=== PATIENT | female | born 1995 | race African-American/Black ===

== ENCOUNTER 2016-07-15 16:56 | Emergency (ER) | payer OTHER ==
[2016-07-15 19:39] VITALS: RESP 16
[2016-07-15 20:32] LABS: Basophils # (A) 0.1 k/uL (0-0.2); Basophils % (A) 1 %; CH 28.4; CHCM 32.8; Eosinophils # (A) 0.2 k/uL (0-0.7); Eosinophils % (A) 1 %; HCT 38.3 % (34.0-46.0); HDW 2.14; HGB 12.7 gm/dL (11.4-16.0); Luc # (Auto) 0.21; Luc % (Auto) 2; Lymphocytes # (A) 3.1 k/uL (1.0-4.8); Lymphocytes % (A) 23 %; MCH 28.9 pg (25.0-35.0); MCHC 33.3 g/dL (31.0-37.0); MCV 86.7 fL (80.0-100.0); Mean Platelet Volume 7.2; Monocytes # (A) 0.6 k/uL (0-1.0); Monocytes % (A) 5 %; Neutrophils # (A) 9.1 k/uL (1.3-7.7); Neutrophils % (A) 69 %; RBC 4.41 m/uL (3.80-5.40); RDW 13.4 % (11.5-15.5); WBC 13.2 k/uL (3.8-10.6); WBC (Perox) 13.11
[2016-07-15 20:37] LABS: Appearance,Urine Clear (Clear); Bilirubin,Urine Negative (Negative); Glucose,Urine (UA) Negative (Negative); Ketones,Urine Negative (Negative); Leukocyte Esterase,Urine Negative (Negative); Mucus,Urine Occasional /hpf; Nitrite,Urine Negative (Negative); Particle Count 7701; Protein,Urine Negative (Negative); RBC,Urine <1 /hpf (0-5); Specific Gravity,Urine 1.023 (1.001-1.035); Squamous Epithelial Cell,Urine 1 /hpf (0-4); UA Billing (MACRO vs. MICRO) MICRO; Urobilinogen,Urine <2.0 mg/dL (<2.0); WBC,Urine 1 /hpf (0-5)
[2016-07-15 20:41] LABS: ALT 36 U/L (9-52); AST 30 U/L (14-36); Alkaline Phosphatase 103 U/L (38-126); Anion Gap 11 mmol/L; Blood Urea Nitrogen 12 mg/dL (7-17); Carbon Dioxide 22 mmol/L (22-30); Chloride 108 mmol/L (98-107); Glucose 89 mg/dL (74-99); Non-African American GFR(MDRD) >60 (>60 ml/min/1.73 sqM); Potassium 4.1 mmol/L (3.5-5.1); Sodium 141 mmol/L (137-145); Total Bilirubin 0.7 mg/dL (0.2-1.3); Total Protein 8.4 g/dL (6.3-8.2)
[2016-07-15 20:58] LABS: HCG,Quantitative Serum <2.4 mIU/mL
[2016-07-15] MEDS ORDERED: ACETAMINOPHEN TAB 500 MG TAB PO STA (21:16)
--- NOTE | 2016-07-15 21:17 | ED ---
Abdominal Pain HPI - General Chief Complaint: Abdominal Pain Stated Complaint: Abd Pain/Vaginal Bleeding Preg Length Unknown Time Seen by Provider: 07/15/16 19:26 Source: patient, RN notes reviewed, old records reviewed Mode of arrival: wheelchair Limitations: no limitations - History of Present Illness Initial Comments: This is a 20 year old female with lower pelvic cramping, vaginal bleeding for one week, and postive test 3 weeks ago. She denies any nausea, vomiting, dysuria. She reports that she has had a very small amount of vaginal bleeding, no clots. She denies any fever, chills, chest pain, shortness o breath. - Related Data Home Medications Medication Instructions Recorded Confirmed Albuterol Inhaler [Ventolin Hfa 1 - 2 puff INHALATION RT-Q6H PRN 07/15/16 Inhaler] Budesonide/Formoterol Fumarate 2 puff INHALATION RT-BID 07/15/16 07/15/16 [Symbicort 160-4.5 Mcg Inhaler] Montelukast [Singulair] 10 mg PO DAILY 07/15/16 07/15/16 Previous Rx's Medication Instructions Recorded Cetirizine HCl [Zyrtec] 10 mg PO DAILY #30 tab 10/20/15 Allergies Allergy/AdvReac Type Severity Reaction Status Date / Time ibuprofen [From Motrin] Allergy Rash/Hives Verified 07/15/16 19:53 Penicillins Allergy Rash/Hives Verified 07/15/16 19:53 Review of Systems ROS Statement: Those systems with pertinent positive or pertinent negative responses have been documented in the HPI. ROS Other: All systems not noted in ROS Statement are negative. Past Medical History Past Medical History: Asthma Additional Past Medical History / Comment(s): scoliosis, hereditary angiodema History of Any Multi-Drug Resistant Organisms: None Reported Past Surgical History: No Surgical Hx Reported Additional Past Surgical History / Comment(s): D & C Past Psychological History: Anxiety, Bipolar, Depression, Schizophrenia Smoking Status: Current every day smoker Past Alcohol Use History: Rare Past Drug Use History: None Reported General Exam - General Exam Comments Initial Comments: Well appearing 20 year old female. Limitations: no limitations General appearance: alert, in no apparent distress Head exam: Present: atraumatic, normocephalic, normal inspection Eye exam: Present: normal appearance, PERRL, EOMI. Absent: scleral icterus, conjunctival injection, periorbital swelling ENT exam: Present: normal exam, mucous membranes moist Neck exam: Present: normal inspection. Absent: tenderness, meningismus, lymphadenopathy Respiratory exam: Present: normal lung sounds bilaterally. Absent: respiratory distress, wheezes, rales, rhonchi, stridor Cardiovascular Exam: Present: regular rate, normal rhythm, normal heart sounds. Absent: systolic murmur, diastolic murmur, rubs, gallop, clicks GI/Abdominal exam: Present: soft, normal bowel sounds. Absent: distended, tenderness, guarding, rebound, rigid Speculum exam: Present: normal speculum exam, vaginal bleeding (scant vaginal bleeding. ). Absent: erythema, vaginal discharge Extremities exam: Present: normal inspection, full ROM, normal capillary refill. Absent: tenderness, pedal edema, joint swelling, calf tenderness Back exam: Present: normal inspection Neurological exam: Present: alert, oriented X3, CN II-XII intact Psychiatric exam: Present: normal affect, normal mood Skin exam: Present: warm, dry, intact, normal color. Absent: rash Course Vital Signs 07/15/16 07/15/16 07/15/16 17:09 19:38 21:28 Temperature 99.0 F 98.6 F 97.7 F Pulse Rate 100 74 63 Respiratory 20 16 16 Rate Blood Pressure 113/56 135/66 138/75 O2 Sat by Pulse 96 98 98 Oximetry Medical Decision Making - Medical Decision Making This is a 20 year old female with pelvic cramping, vaginal bleeding and positive test 3 weeks ago. Patient has negative urine , no abodminal tenderness. Lab work is negative. Patient informed of negative test result. Patient has scant vaginal bleeding, no clots. Cervix is not dialated. Discussed that patient could likely be having miscarriage with this bleeding. Offered patient out patient transvaginal US. Patient agrees to folloow up with OBGYN. Patient agrees to treatment plan and will comply. - Lab Data Result diagrams: 07/15/16 20:15 07/15/16 20:15 Lab Results 07/15/16 07/15/16 07/15/16 Range/Units 20:06 20:06 20:15 WBC 13.2 H (3.8-10.6) k/uL RBC 4.41 (3.80-5.40) m/uL Hgb 12.7 (11.4-16.0) gm/dL Hct 38.3 (34.0-46.0) % MCV 86.7 (80.0-100.0) fL MCH 28.9 (25.0-35.0) pg MCHC 33.3 (31.0-37.0) g/dL RDW 13.4 (11.5-15.5) % Plt Count 268 (150-450) k/uL Neutrophils % 69 % Lymphocytes % 23 % Monocytes % 5 % Eosinophils % 1 % Basophils % 1 % Neutrophils # 9.1 H (1.3-7.7) k/uL Lymphocytes # 3.1 (1.0-4.8) k/uL Monocytes # 0.6 (0-1.0) k/uL Eosinophils # 0.2 (0-0.7) k/uL Basophils # 0.1 (0-0.2) k/uL Sodium (137-145) mmol/L Potassium (3.5-5.1) mmol/L Chloride (98-107) mmol/L Carbon Dioxide (22-30) mmol/L Anion Gap mmol/L BUN (7-17) mg/dL Creatinine (0.52-1.04) mg/dL Est GFR (MDRD) Af Amer (>60 ml/min/1.73 sqM) Est GFR (MDRD) Non-Af (>60 ml/min/1.73 sqM) Glucose (74-99) mg/dL Calcium (8.4-10.2) mg/dL Total Bilirubin (0.2-1.3) mg/dL AST (14-36) U/L ALT (9-52) U/L Alkaline Phosphatase (38-126) U/L Total Protein (6.3-8.2) g/dL Albumin (3.5-5.0) g/dL HCG, Quant mIU/mL Urine Color Yellow Urine Appearance Clear (Clear) Urine pH 6.0 (5.0-8.0) Ur Specific [place] 1.023 (1.001-1.035) Urine Protein Negative (Negative) Urine Glucose (UA) Negative (Negative) Urine Ketones Negative (Negative) Urine Blood Small H (Negative) Urine Nitrite Negative (Negative) Urine Bilirubin Negative (Negative) Urine Urobilinogen <2.0 (<2.0) mg/dL Ur Leukocyte Esterase Negative (Negative) Urine RBC <1 (0-5) /hpf Urine WBC 1 (0-5) /hpf Ur Squamous Epith Cells 1 (0-4) /hpf Urine Mucus Occasional H (None) /hpf Urine HCG, Qual Not Detected (Not Detectd) C.trachomatis RNA (Not detected) Chlamydia/GC DNA Source N.gonorrhoeae RNA (Not detected) Trichomonas Ag (Rapid) (Negative) 07/15/16 07/15/16 07/15/16 Range/Units 20:15 21:00 21:00 WBC (3.8-10.6) k/uL RBC (3.80-5.40) m/uL Hgb (11.4-16.0) gm/dL Hct (34.0-46.0) % MCV (80.0-100.0) fL MCH (25.0-35.0) pg MCHC (31.0-37.0) g/dL RDW (11.5-15.5) % Plt Count (150-450) k/uL Neutrophils % % Lymphocytes % % Monocytes % % Eosinophils % % Basophils % % Neutrophils # (1.3-7.7) k/uL Lymphocytes # (1.0-4.8) k/uL Monocytes # (0-1.0) k/uL Eosinophils # (0-0.7) k/uL Basophils # (0-0.2) k/uL Sodium 141 (137-145) mmol/L Potassium 4.1 (3.5-5.1) mmol/L Chloride 108 H (98-107) mmol/L Carbon Dioxide 22 (22-30) mmol/L Anion Gap 11 mmol/L BUN 12 (7-17) mg/dL Creatinine 1.03 (0.52-1.04) mg/dL Est GFR (MDRD) Af Amer >60 (>60 ml/min/1.73 sqM) Est GFR (MDRD) Non-Af >60 (>60 ml/min/1.73 sqM) Glucose 89 (74-99) mg/dL Calcium 10.0 (8.4-10.2) mg/dL Total Bilirubin 0.7 (0.2-1.3) mg/dL AST 30 (14-36) U/L ALT 36 (9-52) U/L Alkaline Phosphatase 103 (38-126) U/L Total Protein 8.4 H (6.3-8.2) g/dL Albumin 4.7 (3.5-5.0) g/dL HCG, Quant <2.4 mIU/mL Urine Color Urine Appearance (Clear) Urine pH (5.0-8.0) Ur Specific [place] (1.001-1.035) Urine Protein (Negative) Urine Glucose (UA) (Negative) Urine Ketones (Negative) Urine Blood (Negative) Urine Nitrite (Negative) Urine Bilirubin (Negative) Urine Urobilinogen (<2.0) mg/dL Ur Leukocyte Esterase (Negative) Urine RBC (0-5) /hpf Urine WBC (0-5) /hpf Ur Squamous Epith Cells (0-4) /hpf Urine Mucus (None) /hpf Urine HCG, Qual (Not Detectd) C.trachomatis RNA DETECTED H (Not detected) Chlamydia/GC DNA Source Endocervix N.gonorrhoeae RNA Not detected (Not detected) Trichomonas Ag (Rapid) Positive H (Negative) Disposition Clinical Impression: Abdominal cramping, Abnormal uterine bleeding Disposition: HOME SELF-CARE Condition: Good Instructions: Dysfunctional Uterine Bleeding (ED) Additional Instructions: Patient advised to follow up with outpatient ultrasound tomorrow. Return to the emergency department if any alarming signs or symptoms occur. Follow-up with primary care provider on Monday. Referrals: Matt Carson DO [Primary Care Provider] - 1-2 days Time of Disposition: 21:12
[2016-07-15 21:33] VITALS: BP 138/75; PULSE 63; TEMP 97.7
== END 2016-07-15 21:33 | disposition home or self-care (01) ==
LOC: EC 16:56
DX: N93.9 Abnormal uterine and vaginal bleeding, unspecified (principal); R10.9 Unspecified abdominal pain; J45.909 Unspecified asthma, uncomplicated; F17.200 Nicotine dependence, unspecified, uncomplicated; Z79.899 Other long term (current) drug therapy; Z88.0 Allergy status to penicillin; Z88.6 Allergy status to analgesic agent
CPT/HCPCS: 36415; 80053; 81001; 81025; 84702; 85025; 87070; 87205; 87491; 87591; 87808; 99284

== ENCOUNTER → 2016-07-18 | Outpatient (CLI) | payer OTHER ==
--- NOTE | 2016-07-18 13:26 | US ---
EXAMINATION TYPE: US transvaginal DATE OF EXAM: 07/18/2016 12:05 PM COMPARISON: 11/01/2014 CLINICAL HISTORY: Prolonged vaginal bleeding. Patient states having a positive test at home . Was at ER few days ago and came back negative. TECHNIQUE: Transvaginal (TV) Date of LMP: 05/23/2016, EXAM MEASUREMENTS: Uterus: 7.0 x 4.5 x 3.1 cm Endometrial Stripe: 0.8 cm Right Ovary: 3.5 x 2.2 x 1.6 cm Left Ovary: 3.8 x 2.2 x 1.6 cm 1. Uterus: Anteverted wnl 2. Endometrium: wnl 3. Right Ovary: Follicles 4. Left Ovary: Follicles Spectral, color and waveform doppler imaging shows good arterial and venous flow within the ovaries ; there is no evidence for ovarian torsion. 5. Bilateral Adnexa: wnl 6. Posterior cul-de-sac: no free fluid IMPRESSION: 1. No acute process. If there is concern for ectopic correlate with serial beta hCG and pel brianna ultrasound.
== END | disposition home or self-care (01) ==
LOC: RADXRMAIN 11:42
PROVIDERS: ATTEND Physician Assistant Medical
DX: N93.9 Abnormal uterine and vaginal bleeding, unspecified (principal)
CPT/HCPCS: 76830

== ENCOUNTER 2017-01-14 03:52 | Emergency (ER) | payer OTHER ==
[2017-01-14] MEDS ORDERED: HYDROcodone/APAP 5-325MG 1 EACH TAB PO STA (04:34)
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
[2017-01-14 05:11] VITALS: BP 151/90; PULSE 104; RESP 18; TEMP 98
== END 2017-01-14 05:09 | disposition home or self-care (01) ==
LOC: EC 03:52
DX: S01.81XA Laceration without foreign body of other part of head, initial encounter (principal); J45.909 Unspecified asthma, uncomplicated; F17.200 Nicotine dependence, unspecified, uncomplicated; Z88.0 Allergy status to penicillin; Z88.6 Allergy status to analgesic agent; Z79.51 Long term (current) use of inhaled steroids; Z79.899 Other long term (current) drug therapy; Y04.0XXA Assault by unarmed brawl or fight, initial encounter
CPT/HCPCS: 12011; 99283

== ENCOUNTER 2017-01-14 20:31 | Emergency (ER) | payer OTHER ==
[2017-01-14 20:51] VITALS: BP 125/69; PULSE 89; RESP 18; TEMP 98.5
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
[2017-01-14] MEDS ORDERED: traMADol 50 MG STARTER PACK 3 TAB BTL PO STA (22:34)
== END 2017-01-14 22:20 | disposition home or self-care (01) ==
LOC: EC 20:31
DX: S06.0X0A Concussion without loss of consciousness, initial encounter (principal); S00.93XA Contusion of unspecified part of head, initial encounter; J45.909 Unspecified asthma, uncomplicated; F31.9 Bipolar disorder, unspecified; F20.9 Schizophrenia, unspecified; F41.9 Anxiety disorder, unspecified; F17.200 Nicotine dependence, unspecified, uncomplicated; Z79.51 Long term (current) use of inhaled steroids; Z79.899 Other long term (current) drug therapy; Z88.0 Allergy status to penicillin; Z88.6 Allergy status to analgesic agent; W22.8XXA Striking against or struck by other objects, initial encounter
CPT/HCPCS: 70450; 99283

== ENCOUNTER → 2017-02-24 | Outpatient (CLI) | payer OTHER ==
--- NOTE | 2017-02-24 09:26 | US ---
EXAMINATION TYPE: US thyroid st tissue head/neck DATE OF EXAM: 02/24/2017 COMPARISON: NONE CLINICAL HISTORY: E07.9 Disorder of thyroid. Neck swelling GLAND SIZE: Right Lobe: 4.8 x 1.2 x 1.4 cm Overall Parenchyma: homogenous Left Lobe: 4.7 x 1.2 x 1.7 cm Overall Parenchyma: homogeneous Isthmus Thickness: 0.2 cm NODULES RIGHT: # of nodules measured on right: 0 LEFT: # of nodules measured on left: 0 ISTHMUS: # of nodules measured in the isthmus: 0 Bilateral neck scanned, no evidence of lymphadenopathy. IMPRESSION: No distinct abnormality appreciated.
== END | disposition home or self-care (01) ==
LOC: RADUSWWP 08:22
PROVIDERS: ATTEND Family Medicine
DX: E07.9 Disorder of thyroid, unspecified (principal)
CPT/HCPCS: 76536

== ENCOUNTER 2017-04-13 11:04 | Emergency (ER) | payer OTHER ==
[2017-04-13 11:28] VITALS: BP 103/70; PULSE 100; RESP 18; TEMP 98.6
--- NOTE | 2017-04-13 13:16 | ED ---
General Adult HPI - General Chief complaint: Abdominal Pain Stated complaint: Abdominal pain Time Seen by Provider: 04/13/17 12:51 Source: patient, RN notes reviewed Mode of arrival: ambulatory Limitations: no limitations - History of Present Illness Initial comments: Patient 41-year-old female who presents emergency room today with chief complaint of lower abdominal pain over the last 2 days. Patient does admit that she is to follow-up with the [employer]. She states that she took Prevacid test at home was negative. She states started the OB who ordered an outpatient lab. Performed. She states that she couldn't regular. Last night. She states she came this morning had it drawn. States that because she was having increased pain she came here to the emergency room. Patient omits to some vaginal discharge denies any bleeding. Patient does note that she's had new sexual partners. She states it's always possibility of a STD. Patient denies any other complaints or symptoms at this time. Patient denies any recent fever, chills, shortness of breath, chest pain, back pain, numbness or tingling, dysuria or hematuria, constipation or diarrhea, headaches or visual changes, or any other complaints. - Related Data Home Medications Medication Instructions Recorded Confirmed Albuterol Inhaler [Ventolin Hfa 1 - 2 puff INHALATION RT-Q6H PRN 07/15/16 Inhaler] Budesonide/Formoterol Fumarate 2 puff INHALATION RT-BID 07/15/16 01/14/17 [Symbicort 160-4.5 Mcg Inhaler] Montelukast [Singulair] 10 mg PO DAILY 07/15/16 01/14/17 Aviane 1 tab PO DAILY 04/13/17 04/13/17 Naproxen 500 mg PO DAILY PRN 04/13/17 04/13/17 Previous Rx's Medication Instructions Recorded Cetirizine HCl [Zyrtec] 10 mg PO DAILY #30 tab 10/20/15 Allergies Allergy/AdvReac Type Severity Reaction Status Date / Time ibuprofen [From Motrin] Allergy Rash/Hives Verified 04/13/17 13:08 Penicillins Allergy Rash/Hives Verified 04/13/17 13:08 Review of Systems ROS Statement: Those systems with pertinent positive or pertinent negative responses have been documented in the HPI. ROS Other: All systems not noted in ROS Statement are negative. Past Medical History Past Medical History: Asthma Additional Past Medical History / Comment(s): scoliosis, hereditary angiodema History of Any Multi-Drug Resistant Organisms: None Reported Past Surgical History: No Surgical Hx Reported Additional Past Surgical History / Comment(s): D & C Past Psychological History: Anxiety, Bipolar, Depression, Schizophrenia Smoking Status: Current every day smoker Past Alcohol Use History: Rare Past Drug Use History: Marijuana General Exam - General Exam Comments Initial Comments: General: The patient is awake and alert, in no distress, and does not appear acutely ill. Eye: Pupils are equal, round and reactive to light, extra-ocular movements are intact. No nystagmus. There is normal conjunctiva bilaterally. No signs of icterus. Ears, nose, mouth and throat: There are moist mucous membranes and no oral lesions. Neck: The neck is supple, there is no tenderness or JVD. Cardiovascular: There is a regular rate and rhythm. No murmur, rub or gallop is appreciated. Respiratory: Lungs are clear to auscultation, respirations are non-labored, breath sounds are equal. No wheezes, stridor, rales, or rhonchi. Gastrointestinal: Soft, non-distended, non-tender abdomen without masses or organomegaly noted. There is no rebound or guarding present. No CVA tenderness. Bowel sounds are unremarkable. Musculoskeletal: Normal ROM, no tenderness. Strength 5/5. Sensation intact. Pulses equal bilaterally 2+. Neurological: A&O x 3. CN II-XII intact, There are no obvious motor or sensory deficits. Coordination appears grossly intact. Speech is normal. Skin: Skin is warm and dry and no rashes or lesions are noted. Psychiatric: Cooperative, appropriate mood & affect, normal judgment. : CRYSTAL GAZERLINDA Valles present for exam. Patient does have some white discharge in the vaginal canal. This has tenderness with speculum exam. Limitations: no limitations Course Vital Signs 04/13/17 11:24 Temperature 98.6 F Pulse Rate 100 Respiratory 18 Rate Blood Pressure 103/70 O2 Sat by Pulse 98 Oximetry Medical Decision Making - Medical Decision Making 21-year-old female presented for lower abdominal pain. Denies any bleeding. She does not that show some discharge. There is white discharge on exam. She does have tenderness with speculum exam. She states she does have some concern for possible STDs. Patient will be treated with Diflucan along with Rocephin and azithromycin here in emergency room. Patient's urinalysis reviewed. Patient's test blood test done outpatient was reviewed and was negative. Patient is advised no sexual contact for symptoms have resolved following up with her [employer] over the next 5 days. Advised return to emergency room symptoms increase or worsen or for any concerns. Disposition Clinical Impression: Yeast infection, Concern about STD in female without diagnosis Disposition: HOME SELF-CARE Condition: Stable Instructions: Sexually Transmitted Diseases (ED) Additional Instructions: Please follow-up with your [employer] over the next 5 days. Please no sexual contact until symptoms have resolved. Please return to emergency room symptoms increase or worsen or for concerns . Referrals: Yahaira Rivera MD [Primary Care Provider] - 1-2 days Chelsi Parry DO [Doctor of Osteopathic Medicine] - 1-2 days Time of Disposition: 13:59
[2017-04-13 13:27] LABS: Amorphous Sediment,Urine Few /hpf; Appearance,Urine Turbid (Clear); Bacteria,Urine Rare /hpf; Bilirubin,Urine Negative (Negative); Blood,Urine Negative (Negative); Color,Urine Yellow; Glucose,Urine (UA) Negative (Negative); Ketones,Urine Negative (Negative); Leukocyte Esterase,Urine Small (Negative); Mucus,Urine Occasional /hpf; Nitrite,Urine Negative (Negative); PH, Urine 7.5 (5.0-8.0); Protein,Urine Negative (Negative); Specific Gravity,Urine 1.016 (1.001-1.035); Squamous Epithelial Cell,Urine 24 /hpf (0-4); Urobilinogen,Urine <2.0 mg/dL (<2.0); WBC,Urine 8 /hpf (0-5)
[2017-04-13] MEDS ORDERED: cefTRIAXone 250 MG VIAL IM STA (13:56)
[2017-04-13] MEDS ORDERED: FLUCONAZOLE 150 MG TAB PO STA (13:57)
[2017-04-13] MEDS ORDERED: AZITHROMYCIN 500 MG TAB PO STA (13:57)
[2017-04-14 15:47] LABS: Chlamydia trachomatis rRNA Not detected (Not detected); Neisseria gonorrhoeae rRNA Not detected (Not detected)
== END 2017-04-13 15:11 | disposition home or self-care (01) ==
LOC: EC 11:04
DX: B37.9 Candidiasis, unspecified (principal); J45.909 Unspecified asthma, uncomplicated; F17.200 Nicotine dependence, unspecified, uncomplicated; Z88.6 Allergy status to analgesic agent; Z88.0 Allergy status to penicillin; Z32.02 Encounter for pregnancy test, result negative; Z79.51 Long term (current) use of inhaled steroids; Z79.3 Long term (current) use of hormonal contraceptives; Z79.899 Other long term (current) drug therapy
CPT/HCPCS: 87591; 87491; 81001; 87808; 87070; 87086; 87205; 99284; 96372; J0696; 36415; 84702

== ENCOUNTER → 2017-04-13 | Outpatient (CLI) | payer OTHER | END | disposition home or self-care (01) | LOC: LABWHC1 10:38 | PROVIDERS: ATTEND Obstetrics & Gynecology | DX: N92.6 Irregular menstruation, unspecified (principal) | CPT/HCPCS: 36415; 84702 ==

== ENCOUNTER 2017-11-16 21:36 | Emergency (ER) | payer OTHER ==
[2017-11-16] MEDS ORDERED: AZITHROMYCIN 500 MG TAB PO STA (23:29)
--- NOTE | 2017-11-16 23:30 | ED ---
General Adult HPI - General Source: patient, RN notes reviewed Mode of arrival: ambulatory Limitations: no limitations <Edgardo Shields - Last Filed: 11/16/17 23:27> <Candy Bosch - Last Filed: 11/17/17 08:50> - General Chief complaint: ENT Stated complaint: poss bug in ear Time Seen by Provider: 11/16/17 23:17 - History of Present Illness Initial comments: Patient is a 22-year-old female presented to the emergency room today with a chief complaint of feeling fullness in the right ear. She is worried that there could be a bug in it. She does admit that she says some sinus congestion and rhinorrhea. Patient denies any other complaints or symptoms. She states the symptoms started 2 days ago. Patient denies any recent fever, chills, shortness of breath, chest pain, back pain, abdominal pain, nausea or vomiting, numbness or tingling, dysuria or hematuria, constipation or diarrhea, headaches or visual changes, or any other complaints. (Edgardo Shields) - Related Data Home Medications Medication Instructions Recorded Confirmed Albuterol Inhaler [Ventolin Hfa 1 - 2 puff INHALATION RT-Q6H PRN 07/15/16 Inhaler] Budesonide/Formoterol Fumarate 2 puff INHALATION RT-BID 07/15/16 11/16/17 [Symbicort 160-4.5 Mcg Inhaler] Montelukast [Singulair] 10 mg PO DAILY 07/15/16 11/16/17 Aviane 1 tab PO DAILY 04/13/17 11/16/17 Naproxen 500 mg PO DAILY PRN 04/13/17 11/16/17 Previous Rx's Medication Instructions Recorded Cetirizine HCl [Zyrtec] 10 mg PO DAILY #30 tab 10/20/15 Azithromycin [Zithromax Z-pack] 0 mg PO DIRECTED #6 tab 11/16/17 Allergies Allergy/AdvReac Type Severity Reaction Status Date / Time ibuprofen [From Motrin] Allergy Rash/Hives Verified 11/16/17 23:22 Penicillins Allergy Rash/Hives Verified 11/16/17 23:22 Review of Systems ROS Other: All systems not noted in ROS Statement are negative. <Edgardo Shields - Last Filed: 11/16/17 23:27> ROS Other: All systems not noted in ROS Statement are negative. <Candy Bosch - Last Filed: 11/17/17 08:50> ROS Statement: Those systems with pertinent positive or pertinent negative responses have been documented in the HPI. Past Medical History Past Medical History: Asthma Additional Past Medical History / Comment(s): scoliosis, hereditary angiodema History of Any Multi-Drug Resistant Organisms: None Reported Past Surgical History: No Surgical Hx Reported Additional Past Surgical History / Comment(s): D & C Past Psychological History: Anxiety, Bipolar, Depression, Schizophrenia Smoking Status: Current every day smoker Past Alcohol Use History: Rare Past Drug Use History: Marijuana <Edgardo Shields - Last Filed: 11/16/17 23:27> General Exam Limitations: no limitations <Edgardo Shields - Last Filed: 11/16/17 23:27> <Candy Bosch - Last Filed: 11/17/17 08:50> - General Exam Comments Initial Comments: General: The patient is awake and alert, in no distress, and does not appear acutely ill. Eye: Pupils are equal, round and reactive to light, extra-ocular movements are intact. No nystagmus. There is normal conjunctiva bilaterally. No signs of icterus. Ears, nose, mouth and throat: There are moist mucous membranes and no oral lesions. No tenderness over the frontal or maxillary sinuses. Decreased landmarks to the right TM. No foreign body. Left TM is clear. Neck: The neck is supple, there is no tenderness or JVD. Musculoskeletal: Normal ROM, no tenderness. Strength 5/5. Sensation intact. Pulses equal bilaterally 2+. Neurological: A&O x 3. CN II-XII intact, There are no obvious motor or sensory deficits. Coordination appears grossly intact. Speech is normal. Skin: Skin is warm and dry and no rashes or lesions are noted. Psychiatric: Cooperative, appropriate mood & affect, normal judgment. (Edgardo Shields) Vital Signs 11/16/17 11/17/17 22:24 00:04 Temperature 98.3 F 97.9 F Pulse Rate 80 73 Respiratory 18 16 Rate Blood Pressure 111/74 123/70 O2 Sat by Pulse 98 98 Oximetry Medical Decision Making <Edgardo Shields - Last Filed: 11/16/17 23:27> <Candy Bosch - Last Filed: 11/17/17 08:50> - Medical Decision Making Patient will be treated for otitis media on the right. There is no evidence for any foreign body. There is decreased bony landmarks was some increased erythema. She has had increased sinus pressure and rhinorrhea. (Edgardo Shields) The patient was seen and evaluated by the mid-level provider. The patient was concerned she had a foreign body in her ear and requesting that a camera be placed to scope her ear. No foreign body was visualized by the mid-level provider and he referred her to ENT for follow-up. Patient expressed upset that she was seen by a mid-level provider not a physician, patient also expresses concern that she was being racially profile did not is why she is being seen by mid-level's and not real doctors. I personally saw and evaluated the patient, patient reports feeling a buzzing sensation in her right ear after being treated for otitis media. Patient reports that she believes that the bug is deeper in her urine can be seen on exam. I advised her that I also did not see anything in her ear canal. Patient was otherwise well-appearing. I will refer the patient to ENT for follow-up. (Candy Bosch) Disposition Is patient prescribed a controlled substance at d/c from ED?: No Time of Disposition: 23:29 <Edgardo Shields - Last Filed: 11/16/17 23:27> <Candy Bosch - Last Filed: 11/17/17 08:50> Clinical Impression: Acute otitis media Disposition: HOME SELF-CARE Condition: Good Instructions: Earache (ED) Additional Instructions: Please use medication as discussed. Please follow-up with family doctor in the next 2 days of symptoms have not improved. Please return to emergency room if the symptoms increase or worsen or for any other concerns. Prescriptions: Azithromycin [Zithromax Z-pack] 0 mg PO DIRECTED #6 tab Referrals: Yahaira Rivera MD [Primary Care Provider] - 1-2 days Uriel Chavez MD [STAFF PHYSICIAN] - 1-2 days
[2017-11-17 00:05] VITALS: BP 123/70; PULSE 73; RESP 16; TEMP 97.9
== END 2017-11-17 00:05 | disposition home or self-care (01) ==
LOC: EC 21:36
DX: H66.91 Otitis media, unspecified, right ear (principal); J45.909 Unspecified asthma, uncomplicated; F17.200 Nicotine dependence, unspecified, uncomplicated; Z79.51 Long term (current) use of inhaled steroids; Z79.3 Long term (current) use of hormonal contraceptives; Z79.899 Other long term (current) drug therapy; Z88.0 Allergy status to penicillin; Z88.6 Allergy status to analgesic agent
CPT/HCPCS: 99282

== ENCOUNTER 2017-12-16 17:43 | Emergency (ER) | payer OTHER ==
[2017-12-16 17:47] VITALS: BP 120/65; PULSE 92; RESP 18; TEMP 98.4
--- NOTE | 2017-12-16 18:01 | ED ---
General Adult HPI - General Chief complaint: Dental/Oral Stated complaint: Dental Pain Time Seen by Provider: 12/16/17 17:48 Source: patient, RN notes reviewed Mode of arrival: ambulatory Limitations: no limitations - History of Present Illness Initial comments: patient 22-year-old female presented to the emergency room today with a chief complaint of increased dental pain. She does admit to tenderness over tooth # 2. She states that she's had a taste in her mouth to over the last day. She has mid to a sore throat that started earlier as well. Patient states that she' s had a cavity in this tooth for some time but pain is just recently got worse over the last 2 days. Patient denies any other complaints or symptoms. Patient denies any recent fever, chills, shortness of breath, chest pain, back pain, abdominal pain, nausea or vomiting, numbness or tingling, headaches or visual changes, or any other complaints. - Related Data Home Medications Medication Instructions Recorded Confirmed Albuterol Inhaler [Ventolin Hfa 1 - 2 puff INHALATION RT-Q6H PRN 07/15/16 Inhaler] Budesonide/Formoterol Fumarate 2 puff INHALATION RT-BID 07/15/16 11/16/17 [Symbicort 160-4.5 Mcg Inhaler] Montelukast [Singulair] 10 mg PO DAILY 07/15/16 11/16/17 Aviane 1 tab PO DAILY 04/13/17 11/16/17 Naproxen 500 mg PO DAILY PRN 04/13/17 11/16/17 Previous Rx's Medication Instructions Recorded Cetirizine HCl [Zyrtec] 10 mg PO DAILY #30 tab 10/20/15 Azithromycin [Zithromax Z-pack] 0 mg PO DIRECTED #6 tab 11/16/17 Amoxicillin 500 mg PO Q8H 10 Days day 12/16/17 Allergies Allergy/AdvReac Type Severity Reaction Status Date / Time ibuprofen [From Motrin] Allergy Rash/Hives Verified 12/16/17 17:47 Penicillins Allergy Rash/Hives Verified 12/16/17 17:47 Review of Systems ROS Statement: Those systems with pertinent positive or pertinent negative responses have been documented in the HPI. ROS Other: All systems not noted in ROS Statement are negative. Past Medical History Past Medical History: Asthma Additional Past Medical History / Comment(s): scoliosis, hereditary angiodema History of Any Multi-Drug Resistant Organisms: None Reported Past Surgical History: Orthopedic Surgery Additional Past Surgical History / Comment(s): D & C Past Psychological History: Anxiety, Bipolar, Depression, Schizophrenia Smoking Status: Current some day smoker Past Alcohol Use History: Rare Past Drug Use History: Marijuana General Exam - General Exam Comments Initial Comments: General: The patient is awake and alert, in no distress, and does not appear acutely ill. Eye: Extra-ocular movements are intact. No nystagmus. There is normal conjunctiva bilaterally. No signs of icterus. Ears, nose, mouth and throat: There are moist mucous membranes and no oral lesions. uvula midline. No exudate. Patient swallows without difficulty. Patient does have tenderness over tooth #2. There is no sign of abscess to drain. Neck: The neck is supple, there is no tenderness or JVD. Musculoskeletal: Normal ROM, no tenderness. Sensation intact. Neurological: A&O x 3. CN II-XII intact, There are no obvious motor or sensory deficits. Coordination appears grossly intact. Speech is normal. Skin: Skin is warm and dry and no rashes or lesions are noted. Psychiatric: Cooperative, appropriate mood & affect, normal judgment. Limitations: no limitations Course Vital Signs 12/16/17 17:45 Temperature 98.4 F Pulse Rate 92 Respiratory 18 Rate Blood Pressure 120/65 O2 Sat by Pulse 98 Oximetry Medical Decision Making - Medical Decision Making Patient will be treated with amoxicillin as she states she can take amoxicillin but is ALLERGIC to just penicillins. She states penicillin gives her rash. Patient will be given a prescription is advised to follow up with dentist. Advised return if symptoms increase or worsen or for any other concerns. Disposition Clinical Impression: Dental abscess Disposition: HOME SELF-CARE Condition: Good Instructions: Dental Abscess (ED) Additional Instructions: Please follow-up with dentist and use antibiotic and pain medication as discussed. [facility] [address] [id number] [phone]) (existing clients only) For new clients: [phone] [employer] [facility] Pay $50 for x-rays and the rest discovered [phone] Prescriptions: Amoxicillin 500 mg PO Q8H 10 Days day Is patient prescribed a controlled substance at d/c from ED?: No Referrals: Miguel,Yahaira, MD [Primary Care Provider] - 1-2 days Time of Disposition: 17:59
== END 2017-12-16 18:07 | disposition home or self-care (01) ==
LOC: EC 17:43
DX: K04.7 Periapical abscess without sinus (principal); J45.909 Unspecified asthma, uncomplicated; F17.200 Nicotine dependence, unspecified, uncomplicated; Z79.51 Long term (current) use of inhaled steroids; Z79.899 Other long term (current) drug therapy; Z88.6 Allergy status to analgesic agent; Z88.0 Allergy status to penicillin
CPT/HCPCS: 99282

== ENCOUNTER 2018-03-14 10:03 | Day surgery (SDC) | payer OTHER ==
[2018-03-13 09:06] VITALS: BMI 32.1
[~2018-03-14 10:03] MED LIST: DEXAMETHASONE SOD PHOSPHATE 10 MG/ML 1 ML VIAL IV ONE; HYDROmorphone 0.5 MG/0.5 ML SYRINGE IVP PRN; LACTATED RINGERS 1,000 ML IV SCH; LIDOCAINE 1% 20 ML VIAL (10MG/ML) FOR IV START INTRADERMA PRN; ONDANSETRON 4 MG/2 ML VIAL IVP ONE; SCOPOLAMINE 1.5MG/72HR PATCH TRANSDERM ONE
[2018-03-14 10:33] VITALS: RESP 18; TEMP 97.9
[2018-03-14] MEDS ORDERED: PROPOFOL 10 MG/ML 20 ML VIAL IV ONE (10:52)
[2018-03-14] MEDS ORDERED: MIDAZOLAM 2 MG/2 ML VIAL ONE (10:52)
[2018-03-14] MEDS ORDERED: GLYCOPYRROLATE 0.2 MG/ML 2 ML VIAL ONE (10:52)
[2018-03-14] MEDS ORDERED: LIDOCAINE 1% INJ 10MG/ML (20 ML MDV) ONE (10:52)
[2018-03-14] MEDS ORDERED: fentaNYL (PF) 50 MCG/ML 2 ML AMP ONE (10:52)
--- NOTE | 2018-03-14 11:06 | P.PCN ---
Date of Procedure: 03/14/18 Procedure(s) Performed: BRIEF HISTORY: Patient is a 22-year-old, pleasant, white female , scheduled for an upper endoscopy as a part of evaluation of intermittent dysphagia to solids for the last several years duration. She also has chronic heartburn almost on a daily basis.. PROCEDURE PERFORMED: Esophagogastroduodenoscopy with biopsy. PREOPERATIVE DIAGNOSIS: GERD and intermittent dysphagia to solids for several years duration. IV sedation per anesthesia. PROCEDURE: After informed consent was obtained, the patient was brought into the endoscopy unit. IV sedation was administered by Anesthesia under continuous monitoring. Initially the Olympus GIF-140 video endoscope was inserted into the mouth. Esophagus intubated without any difficulty. It was gradually advanced into the stomach and duodenum and carefully examined. The bulb and the second part of the duodenum appeared normal. The scope at this time was withdrawn to the stomach, adequately insufflated with air, and upon careful examination, mucosa of the antrum, had mild patchy areas of erythema and biopsies were done from this area. The body, cardia and the fundus appeared normal. The scope was then withdrawn into the esophagus. The GE junction was located at 39 cm from the incisors. There were 2 superficial erosions noted at the GE junction consistent with LA grade A reflux esophagitis. Rest of the esophagus appeared normal. Biopsies were done from the distal esophagus and the patient tolerated the procedure well. IMPRESSION: 1. Mild antral gastritis. 2. 2 superficial erosions at the GE junction consistent with LA grade A reflux esophagitis.. RECOMMENDATIONS: The findings of this examination were discussed with the patient as well as a family. She was advised to follow with the biopsy results. She was advised to start on Zantac 150 milligrams twice daily and follow antireflux measures.
[2018-03-14 11:38] VITALS: BP 132/78; PULSE 70
== END 2018-03-14 11:49 | disposition home or self-care (01) ==
LOC: ORWHC2ENDO 10:03
PROVIDERS: ATTEND Internal Medicine Gastroenterology
DX: K21.0 Gastro-esophageal reflux disease with esophagitis (principal); K29.70 Gastritis, unspecified, without bleeding; Z88.6 Allergy status to analgesic agent; Z88.0 Allergy status to penicillin; J45.909 Unspecified asthma, uncomplicated; Z79.899 Other long term (current) drug therapy
CPT/HCPCS: 81025; 88305; 43239; J2250; J2001; J3010; J2704

== ENCOUNTER → 2018-03-15 | Outpatient (CLI) | payer OTHER ==
--- NOTE | 2018-03-15 08:26 | US ---
EXAMINATION TYPE: US abdomen complete DATE OF EXAM: 03/15/2018 COMPARISON: NONE CLINICAL HISTORY: R14.0 Bloating. Abdominal discomfort and bloating EXAM MEASUREMENTS: Liver Length: 12.3 cm Gallbladder Wall: 0.1 cm CBD: 0.3 cm Spleen: 8.5 cm Right Kidney: 9.2 x 3.7 x 3.9 cm Left Kidney: 9.8 x 4.9 x 4.7 cm Pancreas: visualized portions wnl, limited by overlying midline bowel gas Liver: wnl Gallbladder: wnl Evidence for sonographic Hyatt's sign: yes CBD: visualized portions wnl, limited by overlying bowel gas Spleen: visualized portions wnl, limited by overlying bowel gas Right Kidney: wnl Left Kidney: visualized portions wnl, limited by overlying bowel gas Upper IVC: wnl Abd Aorta: wnl The liver is homogenous. The intrahepatic portion of the IVC and proximal abdominal aorta are within normal limits. There is no evidence of cholelithiasis. Common bile duct is unremarkable. The visu alized portions of the pancreas are homogenous. The spleen is unremarkable. Kidneys are symmetric a nd free of hydronephrosis. No renal lesions are seen. IMPRESSION: No distinct abnormality appreciated.
== END ==
LOC: RADUSWWP 07:42
PROVIDERS: ATTEND Family Medicine
DX: R14.0 Abdominal distension (gaseous) (principal)
CPT/HCPCS: 76700

== ENCOUNTER → 2018-03-29 | Outpatient (CLI) | payer OTHER ==
--- NOTE | 2018-03-30 09:18 | NM ---
Nuclear medicine hepatobiliary scan. HISTORY: Pain. DOSAGE: The patient received 8 ounces of ensure plus and 5.1 mCi of Technetium 99m Choletec. FINDINGS: There is normal hepatic extraction. The gallbladder is seen by 90 minutes. There is bilia ry to bowel clearance by 20 minutes. Ejection fraction is 61%. IMPRESSION: 1. Delayed filling of the gallbladder correlate for cholecystitis. 2. Ejection fraction 61% and within normal limits
== END | disposition home or self-care (01) ==
LOC: RADNMMAIN 13:02
PROVIDERS: ATTEND Family Medicine
DX: R14.0 Abdominal distension (gaseous) (principal)
CPT/HCPCS: 78226; A9537

== ENCOUNTER 2018-04-29 01:25 | Emergency (ER) | payer OTHER ==
[2018-04-29 01:33] VITALS: RESP 20
[2018-04-29] MEDS ORDERED: SODIUM CHLORIDE 0.9% 1,000 ML IV STA (01:52)
[2018-04-29 02:06] LABS: Appearance,Urine Clear (Clear); Bilirubin,Urine Negative (Negative); Blood,Urine Negative (Negative); Color,Urine Yellow; Glucose,Urine (UA) Negative (Negative); Ketones,Urine Negative (Negative); Leukocyte Esterase,Urine Negative (Negative); Nitrite,Urine Negative (Negative); PH, Urine 6.5 (5.0-8.0); Protein,Urine Negative (Negative); Specific Gravity,Urine 1.016 (1.001-1.035); Urobilinogen,Urine <2.0 mg/dL (<2.0)
[2018-04-29 02:07] LABS: Basophils # (A) 0.1 k/uL (0-0.2); Basophils % (A) 1 %; Eosinophils # (A) 0.4 k/uL (0-0.7); Eosinophils % (A) 3 %; HCT 38.2 % (34.0-46.0); HGB 12.6 gm/dL (11.4-16.0); Lymphocytes # (A) 4.1 k/uL (1.0-4.8); Lymphocytes % (A) 30 %; MCH 27.7 pg (25.0-35.0); Mean Platelet Volume 6.5; Monocytes # (A) 0.7 k/uL (0-1.0); Monocytes % (A) 5 %; Neutrophils # (A) 8.4 k/uL (1.3-7.7); Neutrophils % (A) 61 %; Platelet Count 304 k/uL (150-450); RBC 4.55 m/uL (3.80-5.40); RDW 13.6 % (11.5-15.5); WBC 13.8 k/uL (3.8-10.6)
[2018-04-29 02:14] LABS: Albumin 4.1 g/dL (3.5-5.0); Calcium 9.3 mg/dL (8.4-10.2); Potassium 4.3 mmol/L (3.5-5.1); Total Bilirubin 0.3 mg/dL (0.2-1.3); Total Protein 7.3 g/dL (6.3-8.2)
[2018-04-29] MEDS ORDERED: MORPHINE SULFATE 4 MG/ML SYRINGE IVP STA (02:32)
[2018-04-29] MEDS ORDERED: POLYETHYLENE GLYCOL 3350 17 GM POWD.PACK PO STA (02:35)
--- NOTE | 2018-04-29 02:40 | ED ---
General Adult HPI - General Chief complaint: Abdominal Pain Stated complaint: Abd Pain Time Seen by Provider: 04/29/18 01:41 Source: patient, EMS, RN notes reviewed Mode of arrival: EMS Limitations: no limitations - History of Present Illness Initial comments: 22-year-old female presents to the emergency department for a chief abdominal pain times one week. Patient states she has left lower quadrant pain. she states pain is radiating to her back as well. She states pain is worse when lying down and better when sitting up. Patient also states she has radiating pain to the right side of the back. She admits to mild upper abdominal pain as well. Denies nausea or vomiting. 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 Patient denies any fevers or chills at home. She did states she feels constipated and has had hard bowel movements. Patient is passing gas without difficulty and less had a small bowel movement yesterday. Patient has no other complaints at this time including shortness of breath, chest pain, nausea or vomiting, headache, or visual changes. - Related Data Home Medications Medication Instructions Recorded Confirmed Albuterol Inhaler [Ventolin Hfa 1 - 2 puff INHALATION RT-Q6H PRN 07/15/16 Inhaler] Budesonide/Formoterol Fumarate 2 puff INHALATION RT-BID 07/15/16 04/29/18 [Symbicort 160-4.5 Mcg Inhaler] Montelukast [Singulair] 10 mg PO DAILY 07/15/16 04/29/18 Naproxen 500 mg PO DAILY PRN 04/13/17 04/29/18 Previous Rx's Medication Instructions Recorded Cetirizine HCl [Zyrtec] 10 mg PO DAILY #30 tab 10/20/15 Allergies Allergy/AdvReac Type Severity Reaction Status Date / Time ibuprofen [From Motrin] Allergy Rash/Hives Verified 04/29/18 01:33 Penicillins Allergy Rash/Hives Verified 04/29/18 01:33 Review of Systems ROS Statement: Those systems with pertinent positive or pertinent negative responses have been documented in the HPI. ROS Other: All systems not noted in ROS Statement are negative. Past Medical History Past Medical History: Asthma Additional Past Medical History / Comment(s): scoliosis, hereditary angiodema History of Any Multi-Drug Resistant Organisms: None Reported Past Surgical History: Orthopedic Surgery Additional Past Surgical History / Comment(s): D & C Past Psychological History: Anxiety, Bipolar, Depression, Schizophrenia Smoking Status: Current some day smoker General Exam Limitations: no limitations General appearance: alert, in no apparent distress Head exam: Present: atraumatic, normocephalic, normal inspection Eye exam: Present: normal appearance, PERRL, EOMI. Absent: scleral icterus, conjunctival injection, periorbital swelling ENT exam: Present: normal exam, mucous membranes moist Neck exam: Present: normal inspection, full ROM. Absent: tenderness, meningismus, lymphadenopathy Respiratory exam: Present: normal lung sounds bilaterally. Absent: respiratory distress, wheezes, rales, rhonchi, stridor Cardiovascular Exam: Present: regular rate, normal rhythm, normal heart sounds. Absent: systolic murmur, diastolic murmur, rubs, gallop, clicks GI/Abdominal exam: Present: soft, tenderness (Minimal left lower quadrant tenderness), normal bowel sounds. Absent: distended, guarding, rebound, rigid Neurological exam: Present: alert, oriented X3, CN II-XII intact Psychiatric exam: Present: normal affect, normal mood Course Vital Signs 04/29/18 01:26 Temperature 98.8 F Pulse Rate 85 Respiratory 20 Rate Blood Pressure 116/69 O2 Sat by Pulse 98 Oximetry Medical Decision Making - Medical Decision Making 22-year-old female presents to the emergency department for a chief complaint of abdominal pain times one week, pain is in left lower quadrant. Minimal tenderness on exam. CBC CMP unremarkable. Urine does not show any evidence of infection. HCG negative. CT negative for any acute findings. Patient given MiraLAX here in the emergency Department if she does say she may be constipated. Patient will follow up with primary care. She will return here if she has any worsening symptoms. - Lab Data Result diagrams: 04/29/18 01:34 04/29/18 01:34 Lab Results 04/29/18 04/29/18 04/29/18 Range/Units 01:34 01:34 01:34 WBC 13.8 H (3.8-10.6) k/uL RBC 4.55 (3.80-5.40) m/uL Hgb 12.6 (11.4-16.0) gm/dL Hct 38.2 (34.0-46.0) % MCV 84.0 (80.0-100.0) fL MCH 27.7 (25.0-35.0) pg MCHC 33.0 (31.0-37.0) g/dL RDW 13.6 (11.5-15.5) % Plt Count 304 (150-450) k/uL Neutrophils % 61 % Lymphocytes % 30 % Monocytes % 5 % Eosinophils % 3 % Basophils % 1 % Neutrophils # 8.4 H (1.3-7.7) k/uL Lymphocytes # 4.1 (1.0-4.8) k/uL Monocytes # 0.7 (0-1.0) k/uL Eosinophils # 0.4 (0-0.7) k/uL Basophils # 0.1 (0-0.2) k/uL Sodium 139 (137-145) mmol/L Potassium 4.3 (3.5-5.1) mmol/L Chloride 107 (98-107) mmol/L Carbon Dioxide 22 (22-30) mmol/L Anion Gap 10 mmol/L BUN 14 (7-17) mg/dL Creatinine 1.02 (0.52-1.04) mg/dL Est GFR (CKD-EPI)AfAm 89 (>60 ml/min/1.73 sqM) Est GFR (CKD-EPI)NonAf 78 (>60 ml/min/1.73 sqM) Glucose 94 (74-99) mg/dL Calcium 9.3 (8.4-10.2) mg/dL Total Bilirubin 0.3 (0.2-1.3) mg/dL AST 28 (14-36) U/L ALT 35 (9-52) U/L Alkaline Phosphatase 194 H (38-126) U/L Total Protein 7.3 (6.3-8.2) g/dL Albumin 4.1 (3.5-5.0) g/dL Amylase 63 (30-110) U/L Lipase 125 (23-300) U/L Urine Color Yellow Urine Appearance Clear (Clear) Urine pH 6.5 (5.0-8.0) Ur Specific [place] 1.016 (1.001-1.035) Urine Protein Negative (Negative) Urine Glucose (UA) Negative (Negative) Urine Ketones Negative (Negative) Urine Blood Negative (Negative) Urine Nitrite Negative (Negative) Urine Bilirubin Negative (Negative) Urine Urobilinogen <2.0 (<2.0) mg/dL Ur Leukocyte Esterase Negative (Negative) Urine HCG, Qual (Not Detectd) 04/29/18 Range/Units 01:34 WBC (3.8-10.6) k/uL RBC (3.80-5.40) m/uL Hgb (11.4-16.0) gm/dL Hct (34.0-46.0) % MCV (80.0-100.0) fL MCH (25.0-35.0) pg MCHC (31.0-37.0) g/dL RDW (11.5-15.5) % Plt Count (150-450) k/uL Neutrophils % % Lymphocytes % % Monocytes % % Eosinophils % % Basophils % % Neutrophils # (1.3-7.7) k/uL Lymphocytes # (1.0-4.8) k/uL Monocytes # (0-1.0) k/uL Eosinophils # (0-0.7) k/uL Basophils # (0-0.2) k/uL Sodium (137-145) mmol/L Potassium (3.5-5.1) mmol/L Chloride (98-107) mmol/L Carbon Dioxide (22-30) mmol/L Anion Gap mmol/L BUN (7-17) mg/dL Creatinine (0.52-1.04) mg/dL Est GFR (CKD-EPI)AfAm (>60 ml/min/1.73 sqM) Est GFR (CKD-EPI)NonAf (>60 ml/min/1.73 sqM) Glucose (74-99) mg/dL Calcium (8.4-10.2) mg/dL Total Bilirubin (0.2-1.3) mg/dL AST (14-36) U/L ALT (9-52) U/L Alkaline Phosphatase (38-126) U/L Total Protein (6.3-8.2) g/dL Albumin (3.5-5.0) g/dL Amylase (30-110) U/L Lipase (23-300) U/L Urine Color Urine Appearance (Clear) Urine pH (5.0-8.0) Ur Specific [place] (1.001-1.035) Urine Protein (Negative) Urine Glucose (UA) (Negative) Urine Ketones (Negative) Urine Blood (Negative) Urine Nitrite (Negative) Urine Bilirubin (Negative) Urine Urobilinogen (<2.0) mg/dL Ur Leukocyte Esterase (Negative) Urine HCG, Qual Not Detected (Not Detectd) Disposition Clinical Impression: Abdominal pain Disposition: HOME SELF-CARE Condition: Good Instructions (If sedation given, give patient instructions): Abdominal Pain (ED ) Additional Instructions: Please follow up with primary care in 1-2 days. If pain worsens or if any other worsening symptoms return to the emergency department. Is patient prescribed a controlled substance at d/c from ED?: No Referrals: Yahaira Rivera MD [Primary Care Provider] - 1-2 days Time of Disposition: 03:30
--- NOTE | 2018-04-29 03:10 | CT ---
EXAMINATION TYPE: CT abdomen pelvis w con DATE OF EXAM: 04/29/2018 COMPARISON: 12/23/2013 HISTORY: abd pain CT DLP: 1020.7 mGycm Automated exposure control for dose reduction was used. TECHNIQUE: Helical acquisition of images was performed from the lung bases through the pelvis. CONTRAST: Performed without Oral Contrast and with IV Contrast, patient injected with 100 mL of Isovue 300. FINDINGS: Lung bases are clear. There is no pleural effusion. Heart size is normal. Liver spleen pancreas appear normal. Gallbladder is contracted. Bile ducts are not dilated. There is no adrenal mass. Kidneys show satisfactory contrast opacification. There is no hydronephrosi s. There is no retroperitoneal adenopathy. Bladder distends smoothly. Uterus is anteverted. There is no free fluid in the pelvis. There is no inguinal hernia. There is no mesenteric edema. There is no s ign of free air. There is no ascites. Appendix appears normal. Appendix is posterior. Lumbar spine is intact. I see no intestinal wall thickening. There is no evidence of a bowel obstruction. IMPRESSION: NORMAL APPENDIX. NO SIGN OF ACUTE ABDOMEN AND PELVIS. NO ADVERSE CHANGE COMPARED TO OLD EXAM.
[2018-04-29 03:43] VITALS: BP 139/79; PULSE 67; TEMP 97
[2018-04-30 15:29] LABS: C. trachomatis,PCR Negative (Neg,Equiv); Chlamydia trachomatis Source Urine
[2018-04-30 15:34] LABS: N. gonorrhoeae,PCR Negative (Neg,Equiv); Neisseria Source Urine
== END 2018-04-29 03:43 | disposition home or self-care (01) ==
LOC: EC 01:25
DX: R10.32 Left lower quadrant pain (principal); R10.10 Upper abdominal pain, unspecified; J45.909 Unspecified asthma, uncomplicated; F17.200 Nicotine dependence, unspecified, uncomplicated; Z79.51 Long term (current) use of inhaled steroids; Z79.899 Other long term (current) drug therapy; Z88.0 Allergy status to penicillin; Z88.6 Allergy status to analgesic agent
CPT/HCPCS: 36415; 80053; 82150; 83690; 85025; 81003; 81025; 87491; 87591; 74177; 99285; 96374; 96361; J2270; Q9967

== ENCOUNTER → 2018-05-01 | Outpatient (CLI) | payer OTHER ==
--- NOTE | 2018-05-01 16:08 | US ---
EXAMINATION TYPE: US thyroid st tissue head/neck DATE OF EXAM: 05/01/2018 COMPARISON: CLINICAL HISTORY: E04.9 Goiter. Hx goiter, No thyroid meds GLAND SIZE: Right Lobe: 4.9 x 1.2 x 1.5 cm Overall Parenchyma: homogenous Left Lobe: 4.6 x 1.6 x 1.3 cm Overall Parenchyma: homogeneous Isthmus Thickness: 0.1 cm NODULES RIGHT: # of nodules measured on right: 0 LEFT: # of nodules measured on left: 0 ISTHMUS: # of nodules measured in the isthmus: 0 Bilateral neck scanned, no evidence of lymphadenopathy. IMPRESSION: 1. Normal thyroid ultrasound
== END ==
LOC: RADUSWWP 15:42
PROVIDERS: ATTEND Family Medicine
DX: E04.9 Nontoxic goiter, unspecified (principal)
CPT/HCPCS: 76536

== ENCOUNTER → 2019-01-01 | Outpatient (CLI) | payer OTHER ==
--- NOTE | 2019-01-01 11:12 | US ---
EXAMINATION TYPE: US pelvic complete DATE OF EXAM: 01/01/2019 COMPARISON: NONE CLINICAL HISTORY: R10.2 Pelvic pain N83.0 Previous L ovarian cyst. Intermittent severe left pelvic cr amping/pain; ; prior D&C; HX of gastritis TECHNIQUE: Transvaginal (TV). Transvaginal sonographic images were medically necessary to better ass ess the following anatomy: uterus and ovary as bladder was not fully distended and uterus is retrover lenora. Date of LMP: 12/13/2018 EXAM MEASUREMENTS: Uterus: 7.2 x 4.9 x 4.4 cm Endometrial Stripe: 1.2 cm Right Ovary: 2.7 x 2.9 x 2.4 cm Left Ovary: 5.3 x 3.9 x 3.0 cm 1. Uterus: Retroverted; couple of small Nabothian Cysts in cervix 2. Endometrium: thickness is wnl for day 20LMP 3. Right Ovary: multiple small follicles with largest = 0.4 x 0.4 x 0.4cm 4. Left Ovary: enlarged, multifollicular with largest simple and thick walled cyst = 1.7 x 1.6 x 1.7 cm; smaller involuting cyst noted = 1.5 x 1.7 x 1.1cm. Spectral, color and Pulse waveform Doppler imaging shows good arterial and venous flow within the o varies; there is no evidence for ovarian torsion. 5. Bilateral Adnexa: medial to left ovary free fluid seen = 2.8 x 1.9 x 2.2 x 0.523 = 6.1ml. 6. Posterior cul-de-sac: wnl IMPRESSION: 1. Asymmetrically enlarged left ovary with numerous follicles in both ovaries suggesting polycystic o varian syndrome. Correlate with serum laboratory values. Arterial and venous waveforms are seen to josefa th ovaries and the left ovary does not appear edematous to suggest torsion at this time however the i ncreased size is a risk factor for ovarian torsion. 2. Free fluid is seen medial to the left ovary and adjacent to uterus, which may be sequela of a rece ntly ruptured cyst.
== END | disposition home or self-care (01) ==
LOC: RADUSMAIN 08:46
PROVIDERS: ATTEND Obstetrics & Gynecology
DX: N83.8 Other noninflammatory disorders of ovary, fallopian tube and broad ligament (principal)
CPT/HCPCS: 76830

== ENCOUNTER → 2019-09-25 | Outpatient (CLI) | payer OTHER ==
--- NOTE | 2019-09-25 13:11 | US ---
EXAMINATION TYPE: Transabdominal DATE OF EXAM: 09/25/2019 12:58 PM COMPARISON: NONE CLINICAL HISTORY: Confirm Dates Z36. EXAM PERFORMED: Transvaginal (TV) and Transabdominal (TA) EXAM MEASUREMENTS: GESTATIONAL AGE / DATING Physician Established: Not yet established Dates by LMP: LMP unknown Dates by First Scan: No previous this is first scan Dates by Current Scan for: (12 weeks/1 days) EDC: 04/07/20 MATERNAL ANATOMY Uterus: 10.8 x 7.5 x 7.3cm Right Ovary: obscured by overlying bowel gas Left Ovary: obscured by overlying bowel gas Post CDS / Adnexa: wnl Presence of free fluid: no GESTATION / SURVEY CRL: 5.4cm (12 weeks/1 days) Yolk Sac (normal less than 6mm): not visualized Heart Rate: 165 bpm Rhythm: Normal IUP: Viable IUP Date of LMP: unknown Patient of large body habitus. Technically difficult study. IMPRESSION: Single viable intrauterine on this limited study.
== END | disposition home or self-care (01) ==
LOC: RADUSWWP 12:19
PROVIDERS: ATTEND Obstetrics & Gynecology
DX: Z36.9 Encounter for antenatal screening, unspecified (principal); Z3A.12 12 weeks gestation of pregnancy
CPT/HCPCS: 76801; 76817

== ENCOUNTER 2019-10-07 22:10 | Emergency (ER) | payer OTHER ==
--- NOTE | 2019-10-07 23:42 | US ---
EXAMINATION TYPE: US thyroid st tissue head/neck DATE OF EXAM: 10/07/2019 COMPARISON: US 2019 normal thyroid ultrasound. 05/01/2018 CLINICAL HISTORY: right submantibular swelling. Right submandibular swelling x 1 day. *To scan right submandibular area, no complete thyroid scan necessary per PA. Scanned right submandibular area of concern/pain. Multiple hypoechoic areas with hyperechoic centers and vascular renuka seen in this area. Largest appea rs to measure: 1.0 x 0.9 x 0.5 cm. Scanned left submandibular area for comparison. No abnormalities seen at this time by ultrasound. IMPRESSION: There is demonstrated ordinary appearing right side submandibular lymph nodes that measure up to 10 x 5 mm. No evidence of an abscess.
--- NOTE | 2019-10-07 23:50 | ED ---
General Adult HPI - General Chief complaint: ENT Stated complaint: Difficulty swallowing, 14 wks preg Time Seen by Provider: 10/07/19 22:27 Source: patient, RN notes reviewed, old records reviewed Mode of arrival: ambulatory Limitations: no limitations - History of Present Illness Initial comments: 23-year-old female patient who is a presents to ED for evaluation of right-sided neck swelling. Patient reports has ongoing for the last 2 days. She reports that she does have a little bit of pain with swallowing. Denies any abdominal pain. Denies any vaginal bleeding. Denies any other acute complaints. Systemic: Pt denies fatigue, fever/chills, rash. Pt denies weakness, night sweats, weight loss. Neuro: Pt denies headache, visual disturbances, syncope or pre-syncope. HEENT: Pt denies ocular discharge or irritation, otalgia, rhinorrhea, pharyngitis or notable lymphadenopathy. Cardiopulmonary: Pt denies chest pain, SOB, heart palpitations, dyspnea on exertion. Abdominal/GI: Pt denies abdominal pain, n/v/d. : Pt denies dysuria, burning w/ urination, frequency/urgency. Denies new onset urinary or bowel incontinence. MSK: Pt denies myalgia, loss of strength or function in extremities. Neuro: Pt denies new onset weakness, paresthesias. - Related Data Home Medications Medication Instructions Recorded Confirmed Montelukast [Singulair] 10 mg PO DAILY 07/15/16 10/07/19 Albuterol Sulfate [Ventolin HFA] 2 puff INHALATION RT-Q6H PRN 10/07/19 10/07/19 Ergocalciferol (Vitamin D2) 50,000 unit PO Q14D 10/07/19 10/07/19 [Drisdol] Zen-Fqwl-Giaxx Acid 1 cap PO DAILY 10/07/19 10/07/19 [-U Capsule (formulary)] Previous Rx's Medication Instructions Recorded Cetirizine HCl [Zyrtec] 10 mg PO DAILY #30 tab 10/20/15 Allergies Allergy/AdvReac Type Severity Reaction Status Date / Time ibuprofen [From Motrin] Allergy Rash/Hives Verified 10/07/19 23:39 Penicillins Allergy Rash/Hives Verified 10/07/19 23:39 Review of Systems ROS Statement: Those systems with pertinent positive or pertinent negative responses have been documented in the HPI. ROS Other: All systems not noted in ROS Statement are negative. Past Medical History Past Medical History: Asthma Additional Past Medical History / Comment(s): scoliosis, hereditary angiodema History of Any Multi-Drug Resistant Organisms: None Reported Past Surgical History: Orthopedic Surgery Additional Past Surgical History / Comment(s): D & C Past Psychological History: Anxiety, Bipolar, Depression, Schizophrenia Smoking Status: Never smoker Past Alcohol Use History: Rare Past Drug Use History: Marijuana General Exam - General Exam Comments Initial Comments: Constitutional: NAD, AOX3, Pt has pleasant affect. HEENT: NC/AT, trachea midline, neck supple, right-sided submandibular soft tissue swelling is noted. No skin changes, no warmth, no fluctuance or drainage.. Posterior pharynx non erythematous, without exudates. Tongue appears within normal limits. No fluctuance or drainage no skin changes. External ears appear normal, without discharge. Mucous membranes moist. Eyes PERRLA, EOM intact. There is no scleral icterus. No pallor noted. Cardiopulmonary: RRR, no murmurs, rubs or gallops, no JVD noted. Lungs CTAB in anterior and posterior arceo. No peripheral edema. Abdominal exam: Abdomen soft and non-distended. Abdomen non-tender to palpation in all 4 quadrants. Bowel sounds active in LLQ. No hepatosplenomegaly. No ecchymosis Neuro: CN II-XII intact. No nuchal rigidity. No raccon eyes, no rosas sign, no hemotympanum. No cervical spinal tenderness. MSK: Full active ROM in upper and lower extremities, 5/5 stregnth. Limitations: no limitations Course Vital Signs 10/07/19 22:11 Temperature 99.2 F Pulse Rate 90 Respiratory 16 Rate Blood Pressure 109/69 O2 Sat by Pulse 99 Oximetry Medical Decision Making - Medical Decision Making 23-year-old female patient presents to ED for evaluation of right-sided neck swelling. Has been ongoing for the last day and a half. Patient vital signs are stable, afebrile. Physical exam does display some right-sided soft tissue swelling submandibular region. Ultrasound does display normal appearing Right- sided submandibular lymph nodes that measure up to 10 x 5 mm. No evidence of abscess. Patient will be discharged with outpatient follow-up with ENT. She'll be advised to use lemon drops for potential of salivary stone. We'll return to ER if condition worsens. She does report that she has been taking her vitamins and has been established with ED. Will be given ENT and PCP follow-up. Case discussed with Dr. Bosch, Disposition Clinical Impression: Lymphadenopathy Disposition: HOME SELF-CARE Condition: Stable Instructions (If sedation given, give patient instructions): Lymphadenopathy (ED) Additional Instructions: Follow up with PCP and ENT tomorrow. Use lemon drops every few hours. Return to ED if condition worsens in anyway. Is patient prescribed a controlled substance at d/c from ED?: No Referrals: Yahaira Rivera MD [Primary Care Provider] - 1-2 days Uriel Chavez MD [STAFF PHYSICIAN] - 1-2 days
[2019-10-08 00:16] VITALS: BP 119/80; PULSE 71; RESP 18; TEMP 98.7
== END 2019-10-08 00:16 | disposition home or self-care (01) ==
LOC: EC 22:10
DX: R59.1 Generalized enlarged lymph nodes (principal); R13.10 Dysphagia, unspecified; J45.909 Unspecified asthma, uncomplicated; Z79.51 Long term (current) use of inhaled steroids; Z88.0 Allergy status to penicillin; Z88.6 Allergy status to analgesic agent
CPT/HCPCS: 76536; 99284

== ENCOUNTER 2020-02-01 20:56 | Outpatient (CLI) | payer OTHER ==
[2020-02-01 22:05] VITALS: BP 124/90; PULSE 113; RESP 16; TEMP 96.5
--- NOTE | 2020-02-02 07:33 | P.MSEPDOC ---
Presenting Problems - Arrival Data Date of Arrival on Unit: 02/01/20 Time of Arrival on Unit: 20:55 Mode of Transport: Ambulatory - Complaint OB-Reason for Admission/Chief Complaint: Pain Comment: upper abd and substernal pain, rates 10 on scale of 0-10 Medical History - Information : 3 Para: 1 Term: 1 : 0 Abortions: Spontaneous or Elective: 1 Number of Living Children: 0 - Gestational Age Gestational Age by NATHEN (wks/days): 30 Weeks and 4 Days Review of Systems - Review of Systems Constitutional: No problems Breast: No problems ENT: No problems Cardiovascular: No problems Respiratory: No problems Gastrointestinal: No problems Genitourinary: No problems Musculoskeletal: No problems Neurological: No problems Skin: No problems Vital Signs - Temperature Temperature: 96.5 F Temperature Source: Temporal Artery Scan - Pulse Right Sitting Pulse Rate: 113 Pulse Assessment Method: Automatic Cuff - Respirations Respiratory Rate: 16 Oxygen Delivery Method: Room Air - Blood Pressure Right Arm Blood Pressure: 124/90 Blood Pressure Mean: 101 Blood Pressure Source: Automatic Cuff - Comment Vital Signs Comment: repeat bp 118/69 Medical Screen Scoring (Pre) - Cervical Exam Dilation: Exam Deferred Effacement: Exam Deferred - Uterine Contractions Frequency: N/A Duration: N/A Intensity: N/A - Maternal Vital Signs Maternal Temperature: N/A Maternal Blood Pressure: N/A Signs of Preeclampsia: N/A Maternal Respirations: N/A - Maternal Trauma Maternal Trauma: N/A - Assessment - Baby A Baseline FHR: 135 Heart Rate - NICHD Category: Category I (Normal) = 0 NST: Reactive Position: N/A Station: N/A - Total Score - Baby A Total Score - Baby A: 0 - Total Score - Baby B Total Score - Baby B: 0 - Total Score - Baby C Total Score - Baby C: 0 - Level of Risk - Baby A Level of Risk - Baby A: Low (0-5) - Level of Risk - Baby B Level of Risk - Baby B: Low (0-5) - Level of Risk - Baby C Level of Risk - Baby C: Low (0-5) - Pain Assessment Pain Location and Character: Upper, Abdomen Pain Scale Used: Numeric (1 - 10) Pain Intensity: 10 Pain Description: *Acute, Stabbing Pain Frequency: Constant Pain Duration: 12 Pain Duration Units: Hours Pain Behavior: None Exhibited Pain Aggravating Factors: Changing Position Non-Pharmacological Interventions: Position/Reposition Physician Notification (Pre) - Physician Notified Physician Notified Date: 02/01/20 Physician Notified Time: 21:44 New Order Received: Yes (d/c home) Disposition - Disposition OB Disposition: Discharge to home, Written follow up instructions reviewed Discharge Date: 02/01/20 Discharge Time: 21:48 I agree with the RN Medical Screening Exam: Yes Risk & Benefit of care provided described in d/c instruction: Yes Diagnosis: PAIN, UNSPECIFIED (Patient presenting complaining of upper abdominal discomfort. There is no evidence of labor or compromise. Pain appears chronic in nature. 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
== END 2020-02-01 21:48 | disposition home or self-care (01) ==
LOC: FBPOP 20:56
PROVIDERS: ATTEND Obstetrics & Gynecology
DX: O99.891 Other specified diseases and conditions complicating pregnancy (principal); Z3A.30 30 weeks gestation of pregnancy
CPT/HCPCS: 59025; G0463; 99213

== ENCOUNTER 2020-03-22 18:59 | Emergency (ER) | payer OTHER ==
[2020-03-22 19:10] VITALS: BP 109/74; PULSE 99; RESP 20; TEMP 98.1
--- NOTE | 2020-03-22 19:13 | ED ---
Animal Bite HPI - General Chief Complaint: Animal Bite Stated Complaint: dog bite Time Seen by Provider: 03/22/20 19:12 Source: patient Mode of arrival: ambulatory Limitations: no limitations - History of Present Illness Initial Comments: 24-year-old, 38.5 weeks , 1 P female presenting to the emergency department with a chief complaint of a dog bite. Patient reports this occurred about one hour ago. Patient reports this is her aunt dog and it is fully vaccinated. Patient reports the bites that is on the right leg that it initially bruised the but has since improved. Patient reports 2 small puncture wounds. States her tetanus is up-to-date. Reports minimal pain at the laceration site. - Related Data Home Medications Medication Instructions Recorded Confirmed Montelukast [Singulair] 10 mg PO DAILY 07/15/16 02/01/20 Albuterol Sulfate [Ventolin HFA] 2 puff INHALATION RT-Q6H PRN 10/07/19 02/01/20 Ergocalciferol (Vitamin D2) 50,000 unit PO Q14D 10/07/19 02/01/20 [Drisdol] [id number]-[id number]-Gnyjs Acid 1 cap PO DAILY 10/07/19 02/01/20 [-U Capsule (formulary)] Budesonide/Formoterol Fumarate 2 puff INHALATION RT-BID 03/22/20 03/22/20 [Symbicort 160-4.5 Mcg Inhaler] Previous Rx's Medication Instructions Recorded Cetirizine HCl [Zyrtec] 10 mg PO DAILY #30 tab 10/20/15 Amoxicillin/Potassium Clav 1 tab PO Q12HR #20 tab 03/22/20 [Augmentin 875-125 Tablet] Allergies Allergy/AdvReac Type Severity Reaction Status Date / Time ibuprofen [From Motrin] Allergy Rash/Hives Verified 03/22/20 19:53 Penicillins Allergy Rash/Hives Verified 03/22/20 19:53 Review of Systems ROS Statement: Those systems with pertinent positive or pertinent negative responses have been documented in the HPI. ROS Other: All systems not noted in ROS Statement are negative. Past Medical History Past Medical History: Asthma Additional Past Medical History / Comment(s): scoliosis, hereditary angiodema History of Any Multi-Drug Resistant Organisms: None Reported Past Surgical History: Orthopedic Surgery Additional Past Surgical History / Comment(s): D & C Past Psychological History: Anxiety, Bipolar, Depression, Schizophrenia Smoking Status: Never smoker Past Alcohol Use History: None Reported Past Drug Use History: None Reported General Exam Limitations: no limitations General appearance: alert, in no apparent distress Head exam: Present: atraumatic, normocephalic, normal inspection Eye exam: Present: normal appearance, PERRL, EOMI Pupils: Present: normal accommodation ENT exam: Present: normal exam, normal oropharynx, mucous membranes moist, TM's normal bilaterally, normal external ear exam Neck exam: Present: normal inspection, full ROM. Absent: tenderness Respiratory exam: Present: normal lung sounds bilaterally. Absent: respiratory distress, wheezes, rales, rhonchi, stridor Cardiovascular Exam: Present: regular rate, normal rhythm, normal heart sounds. Absent: systolic murmur, diastolic murmur Extremities exam: Present: full ROM, normal capillary refill. Absent: normal inspection (Small bite geni on the right lower leg. Does not appear infected), tenderness, pedal edema, joint swelling, calf tenderness Back exam: Present: normal inspection, full ROM. Absent: tenderness, CVA ten derness (R), CVA tenderness (L) Neurological exam: Present: alert, oriented X3, normal gait Psychiatric exam: Present: normal affect, normal mood Skin exam: Present: warm, dry, intact, normal color Course Vital Signs 03/22/20 19:07 Temperature 98.1 F Pulse Rate 99 Respiratory 20 Rate Blood Pressure 109/74 O2 Sat by Pulse 98 Oximetry Medical Decision Making - Medical Decision Making 24-year-old female presenting to the emergency department with a chief complaint of a dog bite. Patient is currently 38.5 weeks . Her tetanus is up-to-date. Patient states she does have an ALLERGY to penicillin but has previously tolerated Augmentin without problems. heart tones 120-150 . Patient will be discharged with 10 day course of Augmentin. Return parameters discussed the patient was understanding and agreeable. Case discussed with physician. Disposition Clinical Impression: Dog bite, Bite by animal Disposition: HOME SELF-CARE Condition: Poor Instructions (If sedation given, give patient instructions): Animal Bite (ED) Additional Instructions: Take prescribed medication as directed. Follow with the primary care physician. Return to emergency department if symptoms worsen. Prescriptions: Amoxicillin/Potassium Clav [Augmentin 875-125 Tablet] 1 tab PO Q12HR #20 tab Is patient prescribed a controlled substance at d/c from ED?: No Referrals: Yahaira Rivera MD [Primary Care Provider] - 1-2 days Time of Disposition: 19:56
[2020-03-22] MEDS ORDERED: AMOXIC-POT CLAV 875-125MG 1 EACH TAB PO STA (19:50)
== END 2020-03-22 20:32 | disposition home or self-care (01) ==
LOC: EC 18:59
DX: O9A.213 Injury, poisoning and certain other consequences of external causes complicating pregnancy, third trimester (principal); S81.851A Open bite, right lower leg, initial encounter; O99.513 Diseases of the respiratory system complicating pregnancy, third trimester; J45.909 Unspecified asthma, uncomplicated; Z79.51 Long term (current) use of inhaled steroids; Z3A.38 38 weeks gestation of pregnancy; Z88.0 Allergy status to penicillin; Z79.899 Other long term (current) drug therapy; Z88.6 Allergy status to analgesic agent; W54.0XXA Bitten by dog, initial encounter; Y92.099 Unspecified place in other non-institutional residence as the place of occurrence of the external cause
CPT/HCPCS: 99283

== ENCOUNTER 2020-03-31 22:56 | Outpatient (CLI) | payer OTHER ==
[2020-03-31 23:21] LABS: Glucose,Whole Blood 118 mg/dL (75-99)
[2020-04-01 00:26] VITALS: BP 120/72; PULSE 92; RESP 16; TEMP 96
--- NOTE | 2020-04-18 20:06 | P.MSEPDOC ---
Presenting Problems - Arrival Data Date of Arrival on Unit: 04/01/20 Time of Arrival on Unit: 22:56 Mode of Transport: Wheelchair - Complaint OB-Reason for Admission/Chief Complaint: Other Comment: Patient arrives to triage and states she has not been feeling well and her. blood sugar levels have been fluctuating. She thought it would be best to come and get. checked out.She also states she has been feeling increased sleepiness and nausea. Medical History - Information : 4 Para: 1 Term: 1 : 0 Abortions: Spontaneous or Elective: 2 Number of Living Children: 1 - Gestational Age Gestational Age by NATHEN (wks/days): 39 Weeks and 1 Days - History Complications: GDM Review of Systems - Review of Systems Constitutional: No problems Breast: No problems ENT: No problems Cardiovascular: No problems Respiratory: No problems Gastrointestinal: No problems Genitourinary: No problems Musculoskeletal: No problems Neurological: No problems Skin: No problems Vital Signs - Temperature Temperature: 96.0 F Temperature Source: Temporal Artery Scan - Pulse Right Brachial Pulse Rate: 92 Pulse Assessment Method: Automatic Cuff - Respirations Respiratory Rate: 16 Oxygen Delivery Method: Room Air - Blood Pressure Right Arm Blood Pressure: 120/72 Blood Pressure Mean: 88 Blood Pressure Source: Automatic Cuff Medical Screen Scoring (Pre) - Cervical Exam Dilation: 1-3 cm = 1 Effacement: More than 50% = 2 Membranes: Intact - Uterine Contractions Frequency: N/A Duration: N/A Intensity: N/A - Maternal Vital Signs Maternal Temperature: N/A Maternal Blood Pressure: N/A Signs of Preeclampsia: Nausea/Vomiting = 1 Maternal Respirations: N/A - Maternal Trauma Maternal Trauma: N/A - Assessment - Baby A Baseline FHR: 130 Heart Rate - NICHD Category: Category I (Normal) = 0 NST: Reactive Position: N/A Station: N/A - Total Score - Baby A Total Score - Baby A: 4 - Total Score - Baby B Total Score - Baby B: 4 - Total Score - Baby C Total Score - Baby C: 4 - Level of Risk - Baby A Level of Risk - Baby A: Low (0-5) - Level of Risk - Baby B Level of Risk - Baby B: Low (0-5) - Level of Risk - Baby C Level of Risk - Baby C: Low (0-5) Physician Notification (Pre) - Physician Notified Physician Notified Date: 04/01/20 Physician Notified Time: 23:35 New Order Received: Yes - Notification Comment Comment: RN spoke with Dr. Parry. RN reported that patient has been having fluctuating. blood sugars ranging from 158-112 this afternoon and a general feeling of malaise. She. is also reporting increased sleepiness. Patient states her reflux has returned. RN. reported that patients blood sugar was 118. Patient states she last ate around 20:30 and it was a corned beef sandwich. Patients blood pressure was 120/72, heart rate was 92,temperature 96.0RN rep orted active NST,cervical exam of 1cm/60%/-2, unchanged since office visit. Patient denies contractions at this time but states she has been having contractions on and off for a few weeks. wants me to the patient that her blood sugar levels are ok and to keep monitoring them, keep her appointment on Monday, and to rest and drink lots of fluids. Patient educated on signs and symptoms to return. Patient verbalizes understanding Disposition - Disposition OB Disposition: Discharge to home Discharge Date: 04/01/20 Discharge Time: 23:50 I agree with the RN Medical Screening Exam: Yes Case reviewed; plan agreed upon as documented in EMR&OBIX.: Yes Diagnosis: DIZZINESS AND GIDDINESS
== END 2020-03-31 23:55 | disposition home or self-care (01) ==
LOC: FBPOP 22:56
PROVIDERS: ATTEND Obstetrics & Gynecology
DX: O26.893 Other specified pregnancy related conditions, third trimester (principal); R11.0 Nausea; R42 Dizziness and giddiness; Z3A.39 39 weeks gestation of pregnancy
CPT/HCPCS: 59025; G0463; 99213

== ENCOUNTER 2020-04-06 06:05 | Inpatient (IN) | payer OTHER ==
[2020-04-06] MEDS ORDERED: METHYLERGONOVINE 0.2 MG/ML 1 ML AMP IM PRN (06:16)
[2020-04-06] MEDS ORDERED: CARBOPROST TROMETHAMINE 250 MCG/ML 1 ML AMP IM PRN (06:16)
[2020-04-06] MEDS ORDERED: LIDOCAINE 0.5% (PF) 5 MG/ML (50 ML SDV) SQ PRN (06:16)
[2020-04-06] MEDS ORDERED: TERBUTALINE 1 MG/ML VIAL SQ PRN (06:16)
[2020-04-06] MEDS ORDERED: OXYTOCIN 10 UNIT/ML 1 ML VIAL IM PRN (06:16)
[2020-04-06] MEDS ORDERED: OXYTOCIN 30 UNITS/500 ML NS 30 UNIT in SALINE 1 500ML.BAG IV SCH ×2 (06:30→19:30)
[2020-04-06 06:36] LABS: Glucose,Whole Blood 96 mg/dL (75-99)
[2020-04-06 06:37] VITALS: RESP 16
[2020-04-06] MEDS: LACTATED RINGERS 1,000 ML IV SCH ×3 (06:38→13:34)
[2020-04-06 06:44] LABS: Basophils # (A) 0.1 k/uL (0-0.2); Basophils % (A) 1 %; Eosinophils # (A) 0.2 k/uL (0-0.7); Eosinophils % (A) 2 %; HCT 32.7 % (34.0-46.0); HGB 11.2 gm/dL (11.4-16.0); Lymphocytes # (A) 2.5 k/uL (1.0-4.8); Lymphocytes % (A) 19 %; MCH 29.2 pg (25.0-35.0); MCHC 34.3 g/dL (31.0-37.0); MCV 84.9 fL (80.0-100.0); Mean Platelet Volume 8.5; Monocytes % (A) 7 %; Neutrophils # (A) 9.8 k/uL (1.3-7.7); Neutrophils % (A) 71 %; Platelet Count 277 k/uL (150-450); RBC 3.85 m/uL (3.80-5.40); RDW 13.3 % (11.5-15.5); WBC 13.7 k/uL (3.8-10.6)
[2020-04-06] MEDS ORDERED: SODIUM CHLORIDE 0.9% 100 ML BAG ONE (12:19)
[2020-04-06] MEDS ORDERED: ROPIVACAINE 5MG/ML 20ML VIAL ONE (12:19)
[2020-04-06] MEDS ORDERED: fentaNYL (PF) 50 MCG/ML 5 ML AMP ONE (12:19)
--- NOTE | 2020-04-06 17:32 | P.HPOB ---
History of Present Illness H&P Date: 04/06/20 Chief Complaint: Induction of labor 24-year-old presents at 39 weeks for induction of labor. Her cervix is 2 cm dilated, 80% effaced, and -2 station. She is julissa irregularly. heart tones 135 with moderate variability and reactive. She is gestational di abetic, diet controlled and her blood sugar this morning is 97. Review of Systems All systems: negative Constitutional: Denies chills, Denies fever Eyes: denies blurred vision, denies pain Ears, nose, mouth and throat: Denies headache, Denies sore throat Cardiovascular: Denies chest pain, Denies shortness of breath Respiratory: Denies cough Gastrointestinal: Denies abdominal pain, Denies diarrhea, Denies nausea, Denies vomiting Genitourinary: Denies dysuria, Denies hematuria Musculoskeletal: Denies myalgias Integumentary: Denies pruritus, Denies rash Neurological: Denies numbness, Denies weakness Psychiatric: Denies anxiety, Denies depression Endocrine: Denies fatigue, Denies weight change Past Medical History Past Medical History: Asthma Additional Past Medical History / Comment(s): scoliosis, hereditary angiodema. Obstetric history: She has had one spontaneous , 1 vaginal delivery and then one loss at 15 weeks. This is her fourth and she's had care with me since 10 weeks. Blood type is O+, abs negative, rubella immune, RPR nonreactive, hepatitis B negative, HIV nonreactive. GBS negative. Diet controlled gestational diabetic History of Any Multi-Drug Resistant Organisms: None Reported Past Surgical History: Orthopedic Surgery Additional Past Surgical History / Comment(s): D & C, Finger surgery Past Anesthesia/Blood Transfusion Reactions: No Reported Reaction Past Psychological History: Anxiety, Bipolar, Depression, Schizophrenia Smoking Status: Never smoker Past Alcohol Use History: None Reported Past Drug Use History: None Reported - Past Family History Mother Family Medical History: Diabetes Mellitus Father Family Medical History: Diabetes Mellitus Medications and Allergies Home Medications Medication Instructions Recorded Confirmed Type Cetirizine HCl [Zyrtec] 10 mg PO DAILY #30 tab 10/20/15 04/06/20 Rx Montelukast [Singulair] 10 mg PO DAILY 07/15/16 04/06/20 History Albuterol Sulfate [Ventolin HFA] 2 puff INHALATION RT-Q4H PRN 10/07/19 04/06/20 History Ergocalciferol (Vitamin D2) 50,000 unit PO Q14D 10/07/19 04/06/20 History [Drisdol] Nbq-[id number]-Zmdwj Acid 1 cap PO DAILY 10/07/19 04/06/20 History [-U Capsule (formulary)] Budesonide/Formoterol Fumarate 2 puff INHALATION RT-BID 03/22/20 04/06/20 History [Symbicort 160-4.5 Mcg Inhaler] Allergies Allergy/AdvReac Type Severity Reaction Status Date / Time ibuprofen [From Motrin] Allergy Rash/Hives Verified 03/22/20 19:53 Penicillins Allergy Rash/Hives Verified 03/22/20 19:53 Exam Osteopathic Statement: *. No significant issues noted on an osteopathic structural exam other than those noted in the History and Physical/Consult. Vital Signs Temp Pulse Resp BP Pulse Ox 04/06/20 06:29 96.4 F L 122 H 16 124/82 98 Intake and Output 04/06/20 04/06/20 04/06/20 06:59 14:59 22:59 Other: Weight 104.326 kg Heart: Regular rate and rhythm Lungs: Clear to auscultation bilaterally Abdomen: Soft, nontender Extremities: Negative Homans sign Results Result Diagrams: 04/06/20 06:30 Abnormal Lab Results - Last 24 Hours (Table) 04/06/20 Range/Units 06:30 WBC 13.7 H (3.8-10.6) k/uL Hgb 11.2 L (11.4-16.0) gm/dL Hct 32.7 L (34.0-46.0) % Neutrophils # 9.8 H (1.3-7.7) k/uL Assessment and Plan (1) Elective induction of labor planned Current Visit: Yes Status: Acute Code(s): PZX7800 - SNOMED Code(s): 4 43964039 (2) Gestational diabetes mellitus, class A1 Current Visit: Yes Status: Acute Code(s): O24.410 - GESTATIONAL DIABETES MELLITUS IN , DIET CONTROLLED SNOMED Code(s): 10467562 Plan: 1. Induction of labor with amniotomy and Pitocin 2. Anticipate normal vaginal delivery
[2020-04-06] MEDS ORDERED: diphenhydrAMINE 25 MG CAP PO PRN (19:28)
[2020-04-06] MEDS ORDERED: HYDROCORTISONE 2.5% RECTAL CREAM 30 GM TUBE RECTAL PRN (19:28)
[2020-04-06] MEDS ORDERED: IBUPROFEN 600 MG TAB PO PRN (19:28)
[2020-04-06] MEDS ORDERED: SIMETHICONE 80 MG CHEWABLE PO PRN (19:28)
[2020-04-06] MEDS ORDERED: diphenhydrAMINE 50 MG CAP PO PRN (19:28)
[2020-04-06] MEDS ORDERED: BENZOCAINE/MENTHOL SPRAY 1 GM/SPRAY AEROSOL TOPICAL PRN (19:28)
[2020-04-06] MEDS ORDERED: ZOLPIDEM 5 MG TAB PO PRN (19:28)
[2020-04-06] MEDS ORDERED: LANOLIN CREAM 5 GM TUBE TOPICAL PRN (19:28)
[2020-04-06] MEDS ORDERED: diphenhydrAMINE 50 MG/ML 1 ML VIAL IVP PRN ×2 (19:28)
[2020-04-06] MEDS ORDERED: ALBUTEROL NEBULIZED 2.5 MG/3 ML INHALATION PRN (19:29)
--- NOTE | 2020-04-06 19:31 | P.PROBDLV ---
Vaginal Delivery Note - . Vaginal Delivery Note: 24-year-old presents at 39 weeks 6 days for induction of labor. Her cervix is 2 cm dilated, 80% effaced, and -2 station. She is julissa irregularly. heart tones 135 with moderate variability and reactive. She is gestational diabetic, diet controlled and her blood sugar this morning is 97. Pitocin was started. Amniotomy performed at 8 AM and clear fluid noted. When she was uncomfortable she did get an epidural. Her cervix was completely dilate d at 1907. She pushed, and delivered a viable male at 190 over intact perineum under epidural anesthesia. Head delivered OA, anterior shoulder delivered gentle downward guidance for by posterior shoulder and rest of body. Nose and mouth bulb suctioned, cord clamped and cut, placed mother's abdomen. Apgars 9, 9, weight 6 lbs. 14 oz. Placenta delivered spontaneously, intact with three-vessel cord at 1911. Vagina, cervix, and perineum were inspected. A periurethral laceration was repaired with 3-0 Vicryl. Estimated blood loss 200 mL. Mother and baby in stable condition.
[2020-04-06] MEDS: SYMBICORT 160-4.5 MCG INHALER INHALATION SCH (20:34)
[2020-04-06] MEDS: SENNOSIDES-DOCUSATE SODIUM 1 EACH TAB PO SCH (22:01)
[2020-04-07] MEDS: ACETAMINOPHEN TAB 325 MG TAB PO PRN ×2 (02:57→15:43)
[2020-04-07 06:59] LABS: Basophils # (A) 0.1 k/uL (0-0.2); Basophils % (A) 0 %; Eosinophils # (A) 0.4 k/uL (0-0.7); Eosinophils % (A) 3 %; HCT 31.3 % (34.0-46.0); HGB 10.6 gm/dL (11.4-16.0); Lymphocytes # (A) 2.3 k/uL (1.0-4.8); Lymphocytes % (A) 15 %; MCH 29.2 pg (25.0-35.0); MCHC 33.9 g/dL (31.0-37.0); MCV 86.1 fL (80.0-100.0); Mean Platelet Volume 7.6; Monocytes # (A) 0.9 k/uL (0-1.0); Monocytes % (A) 6 %; Neutrophils # (A) 11.6 k/uL (1.3-7.7); Neutrophils % (A) 75 %; Platelet Count 260 k/uL (150-450); RBC 3.63 m/uL (3.80-5.40); RDW 13.5 % (11.5-15.5); WBC 15.4 k/uL (3.8-10.6)
[2020-04-07] MEDS: SYMBICORT 160-4.5 MCG INHALER INHALATION SCH ×2 (08:48→20:22)
[2020-04-07] MEDS: PRENATAL VIT-IRON-FOLIC ACID 1 EACH CAP PO SCH (09:04)
[2020-04-07] MEDS: SENNOSIDES-DOCUSATE SODIUM 1 EACH TAB PO SCH (09:04)
[2020-04-07] MEDS: MONTELUKAST 10 MG TAB PO SCH (09:04)
[2020-04-07] MEDS: LORATADINE 10 MG TAB PO SCH (09:05)
--- NOTE | 2020-04-07 09:19 | P.PNOBGVD ---
Subjective - Subjective Principal diagnosis: Status post normal vaginal delivery day #1 Interval history: Patient seen and examined. Denies nausea, vomiting, chest pain, shortness of breath or any calf pain. Patient reports: Reports appetite normal, Reports voiding normally, Reports pain well controlled, Reports ambulating normally Amity: doing well Objective - Latest Vital Signs Latest vital signs: Vital Signs Temp Pulse Resp BP 04/07/20 08:00 98.1 F 86 16 121/88 04/07/20 04:00 98.1 F 83 16 121/86 04/07/20 00:00 99.0 F 88 16 132/74 04/06/20 21:15 103 H 16 125/70 04/06/20 20:45 98.1 F 87 16 117/80 04/06/20 20:15 83 16 121/82 04/06/20 20:00 97 16 117/81 04/06/20 19:45 75 16 125/63 04/06/20 19:30 97.3 F L 90 16 123/70 04/06/20 19:15 91 16 129/69 Intake and Output 04/06/20 04/07/20 04/07/20 22:59 06:59 14:59 Intake Total 1000 Output Total 400 Balance -400 1000 Intake: IV 800 Oral 200 Output: Estimated Blood Loss 400 Other: Voiding Method Toilet # Voids 1 1 1 - Exam Lungs: bilateral: normal Chest: Normal S1, Normal S2 Extremities: Present: normal Abdomen: Present: normal appearance, soft Uterus: Present: normal, firm - Labs Labs: Abnormal Lab Results - Last 24 Hours (Table) 04/07/20 Range/Units 06:49 WBC 15.4 H (3.8-10.6) k/uL RBC 3.63 L (3.80-5.40) m/uL Hgb 10.6 L (11.4-16.0) gm/dL Hct 31.3 L (34.0-46.0) % Neutrophils # 11.6 H (1.3-7.7) k/uL Assessment and Plan (1) Elective induction of labor planned Current Visit: Yes Status: Resolved Code(s): JEG6650 - SNOMED Code(s): 412241107 (2) Gestational diabetes mellitus, class A1 Current Visit: Yes Status: Resolved Code(s): O24.410 - GESTATIONAL DIABETES MELLITUS IN , DIET CONTROLLED SNOMED Code(s): 55106086 (3) Normal vaginal delivery Current Visit: Yes Status: Acute Code(s): O80 - ENCOUNTER FOR FULL-TERM UNCOMPLICATED DELIVERY SNOMED Code(s): 92562580 Plan: 1. Continue care
[2020-04-08] MEDS: SENNOSIDES-DOCUSATE SODIUM 1 EACH TAB PO SCH ×2 (00:26→10:02)
[2020-04-08] MEDS: ACETAMINOPHEN TAB 325 MG TAB PO PRN ×2 (03:17→09:21)
--- NOTE | 2020-04-08 08:11 | P.DS ---
Providers Date of admission: 04/06/20 06:05 Expected date of discharge: 04/08/20 Attending physician: Chelsi Parry Primary care physician: Stated None - Discharge Diagnosis(es) (1) Elective induction of labor planned Current Visit: Yes Status: Resolved (2) Gestational diabetes mellitus, class A1 Current Visit: Yes Status: Resolved (3) Normal vaginal delivery Current Visit: Yes Status: Acute Hospital Course: Patient presented for induction of labor. She underwent a normal vaginal delivery. course was uncomplicated. Denies nausea, vomiting, chest pain, shortness of breath or any calf pain. She'll be discharged home post day #2 in stable condition to follow-up with me in 6 weeks. Plan - Discharge Summary New Discharge Prescriptions: New Acetaminophen Tab [Tylenol] 650 mg PO Q4HR PRN #30 tab PRN Reason: Mild Pain Or Fever >= 100.5 No Action Cetirizine HCl [Zyrtec] 10 mg PO DAILY #30 tab Montelukast [Singulair] 10 mg PO DAILY Hvr-Etvi-Zqzbj Acid [-U Capsule (formulary)] 1 cap PO DAILY Ergocalciferol (Vitamin D2) [Drisdol] 50,000 unit PO Q14D Albuterol Sulfate [Ventolin HFA] 2 puff INHALATION RT-Q4H PRN PRN Reason: Shortness Of Breath Budesonide/Formoterol Fumarate [Symbicort 160-4.5 Mcg Inhaler] 2 puff INHALATION RT-BID Discharge Medication List Cetirizine HCl [Zyrtec] 10 mg PO DAILY #30 tab 10/20/15 [Rx] Montelukast [Singulair] 10 mg PO DAILY 07/15/16 [History] Albuterol Sulfate [Ventolin HFA] 2 puff INHALATION RT-Q4H PRN 10/07/19 [History] Ergocalciferol (Vitamin D2) [Drisdol] 50,000 unit PO Q14D 10/07/19 [History] Jws-Nqdb-Zjwed Acid [-U Capsule (formulary)] 1 cap PO DAILY 10/07/19 [History] Budesonide/Formoterol Fumarate [Symbicort 160-4.5 Mcg Inhaler] 2 puff INHALATION RT-BID 03/22/20 [History] Acetaminophen Tab [Tylenol] 650 mg PO Q4HR PRN #30 tab 04/08/20 [Rx] Follow up Appointment(s)/Referral(s): Chelsi Parry DO [Doctor of Osteopathic Medicine] - 6 Weeks Discharge Disposition: HOME SELF-CARE
[2020-04-08] MEDS: MONTELUKAST 10 MG TAB PO SCH (09:22)
[2020-04-08 10:00] VITALS: BP 120/69; PULSE 97; TEMP 98.5
[2020-04-08] MEDS: LORATADINE 10 MG TAB PO SCH (10:02)
[2020-04-08] MEDS: PRENATAL VIT-IRON-FOLIC ACID 1 EACH CAP PO SCH (10:02)
[2020-04-08] MEDS: SYMBICORT 160-4.5 MCG INHALER INHALATION SCH (10:03)
[2020-04-12] MEDS ORDERED: ERGOCALCIFEROL 50,000 UNIT CAP PO SCH (09:00)
== END 2020-04-08 10:47 | disposition home or self-care (01) | DRG 807 ==
LOC: 4FBP 06:05
PROVIDERS: ADMIT Obstetrics & Gynecology; ATTEND Obstetrics & Gynecology
PROC: 3E0R3BZ Introduction of Anesthetic Agent into Spinal Canal, Percutaneous Approach (ICD-10-PCS; principal; 2020-04-06)
PROC: 10E0XZZ Delivery of Products of Conception, External Approach (ICD-10-PCS; principal; 2020-04-06)
PROC: 10907ZC Drainage of Amniotic Fluid, Therapeutic from Products of Conception, Via Natural or Artificial Opening (ICD-10-PCS; principal; 2020-04-06)
PROC: 0UQMXZZ Repair Vulva, External Approach (ICD-10-PCS; principal; 2020-04-06)
PROC: 3E033VJ Introduction of Other Hormone into Peripheral Vein, Percutaneous Approach (ICD-10-PCS; principal; 2020-04-06)
PROC: 00HU33Z Insertion of Infusion Device into Spinal Canal, Percutaneous Approach (ICD-10-PCS; principal; 2020-04-06)
DX: O24.420 Gestational diabetes mellitus in childbirth, diet controlled (principal); Z37.0 Single live birth; D84.1 Defects in the complement system; O99.52 Diseases of the respiratory system complicating childbirth; O71.82 Other specified trauma to perineum and vulva; M41.9 Scoliosis, unspecified; J45.909 Unspecified asthma, uncomplicated; Z3A.39 39 weeks gestation of pregnancy; Z79.51 Long term (current) use of inhaled steroids; Z79.899 Other long term (current) drug therapy; Z86.59 Personal history of other mental and behavioral disorders; Z88.6 Allergy status to analgesic agent; Z88.0 Allergy status to penicillin; Z83.3 Family history of diabetes mellitus
CPT/HCPCS: 85025; 86850; 86900; 86901; 94640

== ENCOUNTER → 2022-10-05 | Outpatient (CLI) | payer OTHER ==
[2022-10-05 22:52] LABS: Basophils # (A) 0.06 X 10*3/uL (0.00-0.10); Basophils % (A) 0.5 %; Eosinophils # (A) 0.11 X 10*3/uL (0.04-0.35); HCT 36.2 % (37.2-46.3); HGB 11.7 d/dL (12.0-15.0); Lymphocytes # (A) 3.39 X 10*3/uL (0.90-5.00); Lymphocytes % (A) 30.2 %; MCHC 32.3 d/dL (32.0-37.0); MCV 86.6 FL (80.0-97.0); Mean Platelet Volume 10.8 FL (9.5-12.2); Monocytes # (A) 0.82 X 10*3/uL (0.20-1.00); Monocytes % (A) 7.3 %; NRBC Per 100 WBC 0 X 10*3/uL (0.00-0.01); Neutrophils % (A) 60.6 %; Platelet Count 324 X 10*3/uL (140-440); RBC 4.18 X 10*6/uL (4.10-5.20); RDW 13.8 % (11.5-14.5); WBC 11.22 X 10*3/uL (4.50-10.00)
[2022-10-05 23:23] LABS: Erythrocyte Sedimentation Rate 55 mm/Hr (0-20)
[2022-10-06 00:37] LABS: ALT 20 U/L (8-44); AST 22 U/L (13-35); Albumin 4.6 d/dL (3.8-4.9); Albumin/Globulin Ratio 1.48 Ratio (1.60-3.17); Alkaline Phosphatase 78 U/L (41-126); BUN/Creat Ratio 9.75 Ratio (12.00-20.00); Blood Urea Nitrogen 11.7 mg/dL (9.0-27.0); C Reactive Protein <0.30 mg/dL (0.00-0.80); Calcium 9.7 mg/dL (8.7-10.3); Carbon Dioxide 22.8 mmol/L (21.6-31.8); Chloride 107 mmol/L (96-109); Globulin 3.1 d/dL (1.6-3.3); Glucose 106 mg/dL (70-110); Sodium 142 mmol/L (135-145); Total Bilirubin 0.7 mg/dL (0.3-1.2); Total Protein 7.7 d/dL (6.2-8.2)
[2022-10-06 08:04] LABS: Albumin 4.5 d/dL (3.8-4.9); Protein, Total 7.3 d/dL (6.2-8.2)
[2022-10-06 10:54] LABS: Alternaria alternata IgE <0.10 kU/L; Aspergillus fumagatus IgE <0.10 kU/L; Birch IgE <0.10 kU/L; Cat Epith & Dander IgE 0.17 kU/L; Cladosporian herbarum IgE <0.10 kU/L; Dog Dander IgE 0.27 kU/L; Elm IgE <0.10 kU/L; Oak IgE <0.10 kU/L
[2022-10-06 12:58] LABS: Bermuda Grass IgE <0.10 kU/L (<0.10); Meadow Fescue IgE <0.10 kU/L (<0.10); Meadow Fescue IgE Class CLASS 0; Meadow Grs (KY blue) IgE <0.10 kU/L (<0.10); Meadow Grs (KY blue) IgE Class CLASS 0; Pecan IgE <0.10 kU/L (<0.10); Pecan IgE Class CLASS 0; Penicillium notatum IgE Class CLASS 0; Timothy Grass IgE <0.10 kU/L (<0.10); Timothy Grass IgE Class CLASS 0
[2022-10-06 12:59] LABS: Beech IgE <0.10 kU/L (<0.10); Beech IgE Class CLASS 0; Cottonwood IgE <0.10 kU/L (<0.10); Goldenrod IgE 0.97 kU/L (<0.10); Goldenrod IgE Class CLASS 2; Lamb's Quarter IgE <0.10 kU/L (<0.10); Lamb's Quarter IgE Class CLASS 0; Sycamore(Mpl.Lf) IgE <0.10 kU/L (<0.10); Sycamore(Mpl.Lf) IgE Class CLASS 0; Willow Tree IgE 0.11 kU/L (<0.10); Willow Tree IgE Class CLASS 0/1
[2022-10-06 13:00] LABS: English Plantain IgE Class CLASS 0/1; Ragweed, Giant IgE Class CLASS 3; Sheep Sorrel IgE <0.10 kU/L (<0.10); Sheep Sorrel IgE Class CLASS 0
[2022-10-06 20:09] LABS: Gamma Globulin 1.17 d/dL (0.70-1.50)
== END | disposition home or self-care (01) ==
LOC: LABWHC1 10:47
PROVIDERS: ATTEND Internal Medicine
DX: J30.9 Allergic rhinitis, unspecified (principal); T78.3XXA Angioneurotic edema, initial encounter
CPT/HCPCS: 36415; 80053; 82785; 84165; 84443; 85025; 85652; 86003; 86038; 86140; 86160; 86161; 86332

== ENCOUNTER 2022-10-15 21:32 | Emergency (ER) | payer OTHER ==
[2022-10-15 21:48] VITALS: TEMP 98.4
--- NOTE | 2022-10-15 22:01 | XR ---
EXAMINATION TYPE: XR chest 2V DATE OF EXAM: 10/15/2022 9:56 PM COMPARISON: Chest radiographs from 09/20/2015 TECHNIQUE: XR chest 2V Frontal and lateral views of the chest. CLINICAL INDICATION:Female, 26 years old with history of Cough; FINDINGS: Lungs/Pleura: There is no evidence of pleural effusion, focal consolidation, or pneumothorax. Pulmonary vascularity: Unremarkable. Heart/mediastinum: Cardiomediastinal silhouette is unremarkable. Musculoskeletal: No acute osseous pathology. IMPRESSION: No acute cardiopulmonary disease/process.
--- NOTE | 2022-10-15 22:03 | ED ---
General Adult HPI - General Chief complaint: Allergic Reaction Stated complaint: Throat, ABD pain Time Seen by Provider: 10/15/22 21:33 Source: EMS Mode of arrival: EMS Limitations: no limitations - History of Present Illness Initial comments: This is a 26-year-old female with a past medical history including severe ALLERGIES and immunocompromise secondary to these ALLERGIES and is being seen by an sewing machine attachment tester and PCP presented to the emergency department via EMS because "I'm living in a very mold filled filled house and I feel like I have pain with breathing and I feel like my body is going something and it and I need an antifungal or and antibiotic or something." The patient stated that the worsening symptoms of been happening over the last 2 weeks and she has not been in her home for the last 2 weeks because of this. The patient is been seen by an sewing machine attachment tester and PCP with extensive workup for ALLERGY testing. The patient stated that she has not had any etiology known about her ALLERGIES. The patient was otherwise resting in bed comfortably without any acute distress and no shortness of breath on evaluation. - Related Data Home Medications Medication Instructions Recorded Confirmed Montelukast [Singulair] 10 mg PO DAILY 07/15/16 04/06/20 Albuterol Sulfate [Ventolin HFA] 2 puff INHALATION RT-Q4H PRN 10/07/19 04/06/20 Ergocalciferol (Vitamin D2) 50,000 unit PO Q14D 10/07/19 04/06/20 [Drisdol] [id number] Acid 1 cap PO DAILY 10/07/19 04/06/20 [-U Capsule (formulary)] Budesonide/Formoterol Fumarate 2 puff INHALATION RT-BID 03/22/20 04/06/20 [Symbicort 160-4.5 Mcg Inhaler] Previous Rx's Medication Instructions Recorded Cetirizine HCl [Zyrtec] 10 mg PO DAILY #30 tab 10/20/15 Acetaminophen Tab [Tylenol] 650 mg PO Q4HR PRN #30 tab 04/08/20 Allergies Allergy/AdvReac Type Severity Reaction Status Date / Time ibuprofen [From Motrin] Allergy Rash/Hives Verified 03/22/20 19:53 Penicillins Allergy Rash/Hives Verified 03/22/20 19:53 Review of Systems ROS Statement: Those systems with pertinent positive or pertinent negative responses have been documented in the HPI. ROS Other: All systems not noted in ROS Statement are negative. Past Medical History Past Medical History: Asthma Additional Past Medical History / Comment(s): scoliosis, hereditary angiodema. Obstetric history: She has had one spontaneous , 1 vaginal delivery and then one loss at 15 weeks. This is her fourth and she's had care with me since 10 weeks. Blood type is O+, abs negative, rubella immune, RPR nonreactive, hepatitis B negative, HIV nonreactive. GBS negative. Diet controlled gestational diabetic History of Any Multi-Drug Resistant Organisms: None Reported Past Surgical History: Orthopedic Surgery Additional Past Surgical History / Comment(s): D & C, Finger surgery Past Anesthesia/Blood Transfusion Reactions: No Reported Reaction Past Psychological History: Anxiety, Bipolar, Depression, Schizophrenia Smoking Status: Never smoker Past Alcohol Use History: None Reported Past Drug Use History: None Reported - Past Family History Mother Family Medical History: Diabetes Mellitus Father Family Medical History: Diabetes Mellitus General Exam Limitations: no limitations General appearance: alert, in no apparent distress Head exam: Present: atraumatic, normocephalic, normal inspection Eye exam: Present: normal appearance, PERRL Pupils: Present: normal accommodation ENT exam: Present: normal exam, normal oropharynx, mucous membranes moist Neck exam: Present: normal inspection, full ROM Respiratory exam: Present: normal lung sounds bilaterally. Absent: respiratory distress, wheezes Cardiovascular Exam: Present: regular rate, normal rhythm, normal heart sounds GI/Abdominal exam: Present: soft, normal bowel sounds Extremities exam: Present: normal inspection, full ROM Back exam: Present: normal inspection, full ROM Neurological exam: Present: alert, oriented X3, CN II-XII intact Psychiatric exam: Present: normal affect, normal mood Skin exam: Present: warm, dry Course Vital Signs 10/15/22 21:38 Temperature 98.4 F Pulse Rate 68 Respiratory 20 Rate Blood Pressure 125/86 O2 Sat by Pulse 99 Oximetry Medical Decision Making - Medical Decision Making Was pt. sent in by a medical professional or institution (, PA, READING INSTRUCTOR, urgent care, hospital, or penitentiary...) When possible be specific @ -No Did you speak to anyone other than the patient for history (EMS, parent, family, police, friend...)? What history was obtained from this source @ -No Did you review nursing and triage notes (agree or disagree)? Why? @ -I reviewed and agree with nursing and triage notes Were old charts reviewed (outside hosp., previous admission, EMS record, old EKG, old radiological studies, urgent care reports/EKG's, penitentiary records)? Report findings @ -No old charts were reviewed Differential Diagnosis (chest pain, altered mental status, abdominal pain women, abdominal pain men, vaginal bleeding, weakness, fever, dyspnea, syncope, headache, dizziness, GI bleed, back pain, seizure, CVA, palpatations, mental health)? @ -ALLERGIC reaction, chronic ALLERGIES, asthma EKG interpreted by me (3pts min.). @ -None X-rays interpreted by me (1pt min.). @ -Chest x-ray was obtained and was interpreted by myself showing no acute process. CT interpreted by me (1pt min.). @ -None done U/S interpreted by me (1pt. min.). @ -None done What testing was considered but not performed or refused? (CT, X-rays, U/S, labs)? Why? @ -None What meds were considered but not given or refused? Why? @ -None Did you discuss the management of the patient with other professionals (professionals i.e. , PA, READING INSTRUCTOR, lab, RT, psych nurse, social media marketer, supervisor adult education, teacher, law enforcement officer, case managers)? Give summary @ -No Was smoking cessation discussed for >3mins.? @ -No Was critical care preformed (if so, how long)? @ -No Were there social determinants of health that impacted care today? How? ( Homelessness, low income, unemployed, alcoholism, drug addiction, transportation, low edu. Level, literacy, decrease access to med. care, retirement, rehab)? @ -No Was there de-escalation of care discussed even if they declined (Discuss DNR or withdrawal of care, Hospice)? DNR status @ -No What co-morbidities impacted this encounter? (DM, HTN, Smoking, COPD, CAD, Cancer, CVA, ARF, Chemo, Hep., AIDS, mental health diagnosis, sleep apnea, morbid obesity)? @ -Significant altered reactions and severe ALLERGIES Was patient admitted / discharged? Hospital course, mention meds given and route , prescriptions, significant lab abnormalities, going to OR and other pertinent info. @ -The patient was seen and evaluated emergency department. Physical exam, the patient was resting in bed without any acute distress. Vital signs admission were stable. Due to the nature the patient's complaints, basic laboratory workup was obtained. All laboratory workup was within normal limits and chest x-ray was negative. The patient likely had some irritation due to the mold in her home however denied of any abnormalities on exam. The patient was advised to follow-up with her sewing machine attachment tester and PCP for continued evaluation and management. The patient was ultimately agreeable to this and all of her questions were answered appropriately. The patient was discharged home in stable condition. Undiagnosed new problem with uncertain prognosis? @ -No Drug Therapy requiring intensive monitoring for toxicity (Heparin, Nitro, Ins ulin, Cardizem)? @ -No Were any procedures done? @ -No Diagnosis/symptom? @ -ALLERGIES, NOS Acute, or Chronic, or Acute on Chronic? @ -Chronic Uncomplicated (without systemic symptoms) or Complicated (systemic symptoms)? @ -Uncomplicated Side effects of treatment? @ -No Exacerbation, Progression, or Severe Exacerbation? @ -No Poses a threat to life or bodily function? How? (Chest pain, [place], [place], pneumonia, PE, COPD, DKA, ARF, appy, cholecystitis, CVA, Diverticulitis, Homicidal, Suicidal, threat to staff... and all critical care pts) @ -No - Lab Data Result diagrams: 10/15/22 22:14 10/15/22 22:14 Lab Results 10/15/22 10/15/22 Range/Units 22:14 22:14 WBC 9.9 (3.8-10.6) k/uL RBC 4.21 (3.80-5.40) m/uL Hgb 12.5 (11.4-16.0) gm/dL Hct 36.5 (34.0-46.0) % MCV 86.6 (80.0-100.0) fL MCH 29.6 (25.0-35.0) pg MCHC 34.2 (31.0-37.0) g/dL RDW 13.5 (11.5-15.5) % Plt Count 216 (150-450) k/uL MPV 8.0 Neutrophils % 56 % Lymphocytes % 33 % Monocytes % 6 % Eosinophils % 3 % Basophils % 0 % Neutrophils # 5.6 (1.3-7.7) k/uL Lymphocytes # 3.3 (1.0-4.8) k/uL Monocytes # 0.6 (0-1.0) k/uL Eosinophils # 0.3 (0-0.7) k/uL Basophils # 0.0 (0-0.2) k/uL Sodium 138 (137-145) mmol/L Potassium 4.2 (3.5-5.1) mmol/L Chloride 107 (98-107) mmol/L Carbon Dioxide 23 (22-30) mmol/L Anion Gap 8 mmol/L BUN 14 (7-17) mg/dL Creatinine 1.08 H (0.52-1.04) mg/dL Est GFR (CKD-EPI)AfAm 81 (>60 ml/min/1.73 sqM) Est GFR (CKD-EPI)NonAf 70 (>60 ml/min/1.73 sqM) Glucose 86 (74-99) mg/dL Calcium 9.0 (8.4-10.2) mg/dL Total Bilirubin 0.9 (0.2-1.3) mg/dL AST 44 H (14-36) U/L ALT 21 (4-34) U/L Alkaline Phosphatase 74 (38-126) U/L Total Protein 7.8 (6.3-8.2) g/dL Albumin 4.3 (3.5-5.0) g/dL Disposition Clinical Impression: Allergies, Mold exposure Disposition: HOME SELF-CARE Condition: Stable Instructions (If sedation given, give patient instructions): Allergies (ED) Is patient prescribed a controlled substance at d/c from ED?: No Referrals: Yahaira Rivera MD [Primary Care Provider] - 1-2 days Time of Disposition: 22:15
[2022-10-15 22:21] LABS: Basophils % (A) 0 %; Eosinophils # (A) 0.3 k/uL (0-0.7); Eosinophils % (A) 3 %; HCT 36.5 % (34.0-46.0); HGB 12.5 gm/dL (11.4-16.0); Lymphocytes # (A) 3.3 k/uL (1.0-4.8); Lymphocytes % (A) 33 %; MCH 29.6 pg (25.0-35.0); MCHC 34.2 g/dL (31.0-37.0); MCV 86.6 fL (80.0-100.0); Monocytes # (A) 0.6 k/uL (0-1.0); Monocytes % (A) 6 %; Neutrophils # (A) 5.6 k/uL (1.3-7.7); Neutrophils % (A) 56 %; Platelet Count 216 k/uL (150-450); RBC 4.21 m/uL (3.80-5.40); RDW 13.5 % (11.5-15.5); WBC 9.9 k/uL (3.8-10.6)
[2022-10-15 22:33] LABS: ALT 21 U/L (4-34); AST 44 U/L (14-36); African American GFR (CKD) 81 (>60 ml/min/1.73 sqM); Albumin 4.3 g/dL (3.5-5.0); Alkaline Phosphatase 74 U/L (38-126); Anion Gap 8 mmol/L; Blood Urea Nitrogen 14 mg/dL (7-17); Carbon Dioxide 23 mmol/L (22-30); Chloride 107 mmol/L (98-107); Glucose 86 mg/dL (74-99); Non-African American GFR(CKD) 70 (>60 ml/min/1.73 sqM); Potassium 4.2 mmol/L (3.5-5.1); Sodium 138 mmol/L (137-145); Total Bilirubin 0.9 mg/dL (0.2-1.3); Total Protein 7.8 g/dL (6.3-8.2)
[2022-10-15 22:46] VITALS: BP 126/98; PULSE 65; RESP 18
== END 2022-10-15 22:46 | disposition home or self-care (01) ==
LOC: EC 21:32
DX: T78.40XA Allergy, unspecified, initial encounter (principal); Z77.120 Contact with and (suspected) exposure to mold (toxic); J45.909 Unspecified asthma, uncomplicated; Z86.59 Personal history of other mental and behavioral disorders; Z79.51 Long term (current) use of inhaled steroids; Z88.0 Allergy status to penicillin; Z88.6 Allergy status to analgesic agent
CPT/HCPCS: 36415; 71046; 80053; 85025; 99283; 99284

== ENCOUNTER 2023-09-19 09:12 | Day surgery (SDC) | payer OTHER ==
[~2023-09-19 09:12] MED LIST changes: -DEXAMETHASONE SOD PHOSPHATE 10 MG/ML 1 ML VIAL IV ONE; -HYDROmorphone 0.5 MG/0.5 ML SYRINGE IVP PRN; -LACTATED RINGERS 1,000 ML IV SCH; +LIDOCAINE 1% (10MG/ML) FOR IV START INTRADERMA PRN; -LIDOCAINE 1% 20 ML VIAL (10MG/ML) FOR IV START INTRADERMA PRN; -ONDANSETRON 4 MG/2 ML VIAL IVP ONE; -SCOPOLAMINE 1.5MG/72HR PATCH TRANSDERM ONE
[2023-09-19 09:55] VITALS: TEMP 97.5
[2023-09-19] MEDS: LACTATED RINGERS 1,000 ML IV SCH (10:12)
[2023-09-19] MEDS: IV FLUID CONTINUATION 1,000 ML IV ONE (10:13)
[2023-09-19] MEDS ORDERED: LIDOCAINE 1% INJ 10MG/ML (20 ML MDV) ONE (10:22)
[2023-09-19] MEDS ORDERED: PROPOFOL 10 MG/ML 20 ML VIAL IV ONE (10:22)
--- NOTE | 2023-09-19 10:35 | P.PCN ---
Date of Procedure: 09/19/23 Procedure(s) Performed: BRIEF HISTORY: Patient is a 27-year-old, pleasant, white female scheduled for an upper endoscopy as a part evaluation of GERD and epigastric pain for the last several years duration. She is presently on Pepcid 20 mg twice daily with some relief in her symptoms.. PROCEDURE PERFORMED: Esophagogastroduodenoscopy with biopsy PREOPERATIVE DIAGNOSIS: Epigastric pain and GERD. IV sedation per anesthesia. PROCEDURE: After informed consent was obtained, the patient was brought into the endoscopy unit. IV sedation was administered by Anesthesia under continuous monitoring. Initially the Olympus GIF-140 video endoscope was inserted into the mouth. Esophagus intubated without any difficulty. It was gradually advanced into the stomach and duodenum and carefully examined. The bulb and the second part of the duodenum appeared normal. The scope at this time was withdrawn to the stomach, adequately insufflated with air, and upon careful examination, mucosa of the antrum, had mild patchy areas of erythema consistent with gastritis. Mucosa of the body, cardia and the fundus appeared normal. The scope was then withdrawn into the esophagus. The GE junction was located at 39 cm from the incisors. The esophagus appeared normal. There were no erosions or ulcerations seen and the patient tolerated the procedure well. IMPRESSION: 1. Mild antral gastritis. 2. No evidence of esophagitis or peptic ulcer disease. RECOMMENDATIONS: The findings of this examination were discussed with the patient as well as her family. She was advised to follow-up with the biopsy results. Continue with Pepcid 20 mg twice daily and follow antireflux measures..
[2023-09-19 10:55] VITALS: BP 93/60; PULSE 90; RESP 17
== END 2023-09-19 11:39 | disposition home or self-care (01) ==
LOC: ORWHC2ENDO 09:12
PROVIDERS: ATTEND Internal Medicine Gastroenterology
DX: K29.50 Unspecified chronic gastritis without bleeding (principal); K21.9 Gastro-esophageal reflux disease without esophagitis; J45.909 Unspecified asthma, uncomplicated; F31.9 Bipolar disorder, unspecified; F20.9 Schizophrenia, unspecified; D84.1 Defects in the complement system; Z88.0 Allergy status to penicillin; Z88.6 Allergy status to analgesic agent; F17.210 Nicotine dependence, cigarettes, uncomplicated; Z79.899 Other long term (current) drug therapy
CPT/HCPCS: 81025; 88305; 43239; J2001; J2704